=== PATIENT | male | born 1970 | race American Indian/Alaskan Native ===

== ENCOUNTER 2018-10-09 09:52 | Inpatient (IN) | payer MEDICARE ==
[2018-10-09 10:01] VITALS: BMI 30.2
[2018-10-09] MEDS ORDERED: MethylPREDNISolone 40 mg Vial IVP STA (10:13)
[2018-10-09] MEDS ORDERED: Albuterol 0.083% Inhal Sol (2.5 mg/3 mL) UD INH STA (10:13)
--- NOTE | 2018-10-09 10:13 | ED PDOC ---
Arrival/HPI - General Chief Complaint: Chest Pain Time Seen by Provider: 10/09/18 10:00 Historian: Patient - History of Present Illness Narrative History of Present Illness (Text): 10/09/18 10:13 A 48 year old male, whose past medical history includes sarcoidosis and 3 pacemakers, presents to the emergency department complaining of chest pain since 3 days ago. Patient reports experiencing associated mid chest congestion, mild productive cough, and a subjective fever. Patient denies any chills, shortness of breath, diarrhea, nausea, vomiting, urinary symptoms, back pain, neck pain, headache, dizziness, or any other complaints. PMD: Dr. Payton Time/Duration: Other (3 days) Symptom Onset: Gradual Symptom Course: Unchanged Activities at Onset: Light Context: Home Past Medical History - Provider Review Nursing Documentation Reviewed: Yes - Infectious Disease Hx of Infectious Diseases: None - Cardiac Hx Cardiac Disorders: Yes ([place] x3) Hx Angina: Yes Hx Atrial Fibrillation: Yes Hx Cardiac Arrhythmia: Yes Hx Circulatory Problems: No Hx Congestive Heart Failure: Yes Hx [place]: Yes Hx Heart Murmur: No Hx Heart Transplant: No Hx Hypertension: Yes Hx Internal Defibrillator: Yes Hx Mitral Valve Prolapse: No Hx Pacemaker: Yes Hx Peripheral Edema: Yes Hx Peripheral Vascular Disease: No Other/Comment: R sided pacemaker - Pulmonary Hx Asthma: No Hx Bronchitis: No Hx Chronic Obstructive Pulmonary Disease (COPD): No Hx Emphysema: No Hx Pneumonia: No Hx Respiratory Aspiration: No Hx Respiratory Tract Infection: No Hx Sleep Apnea: No Hx Tuberculosis: No Other/Comment: Sarcoidosis - Neurological Hx Neurological Disorder: Yes Hx Alzheimer's Disease: No HX Cerebrovascular Accident: Yes (L sided weakness) Hx Dementia: No Hx Dizziness: Yes Hx Meningitis: No Hx Migraine: No Hx Parkinson's Disease: No Hx Seizures: No Hx Transient Ischemic Attacks (TIA): No Other/Comment: Brain aneurysm x 2. x 1 repair - HEENT Hx HEENT Disorder: No Hx Blind: No Hx Cataracts: No Hx Deafness: No Hx Difficulty Chewing: No Hx Epistaxis: No Hx Glaucoma: No Hx Macular Degeneration: No - Renal Hx Renal Disorder: No Hx Dialysis: No Hx Kidney Stones: No Hx Neurogenic Bladder: No Hx Pyelonephritis: No Hx Renal Cancer: No Hx Renal Failure: No - Endocrine/Metabolic Hx Endocrine Disorders: No Hx Adrenal Cancer: No Hx Diabetes Insipidus: No Hx Diabetes Mellitus Type 1: No Hx Diabetes Mellitus Type 2: No Hx Hyperthyroidism: No Hx Hypothyroidism: No Hx Systemic Lupus Erythematosus: No - Hematological/Oncological Hx Blood Disorders: No Hx AIDS: No Hx Anemia: No Hx Cancer: No Hx Chemotherapy: No Hx Cirrhosis: No Hx Hemophilia: No Hx Hepatitis A: No Hx Hepatitis B: No Hx Hepatitis C: No Hx Metastasis: No Hx Shingles: No Hx Sickle Cell Disease: No Hx Unexplained Bleeding: No - Integumentary Hx Dermatological Disorder: No Hx Basal Cell Carcinoma: No Hx Eczema: No Hx Melanoma: No Hx Psoriasis: No Hx Squamous Cell Carcinoma: No - Musculoskeletal/Rheumatological Hx Musculoskeletal Disorders: Yes Hx Arthritis: No Hx Back Pain: Yes Hx Degenerative Joint Disease: No Hx Falls: Yes Hx Fractures: No Hx Gout: No Hx Herniated Disk: No Hx Myasthenia Gravis: No Hx Osteoarthritis: No Hx Osteomyelitis: No Hx Osteoporosis: No Hx Rhabdomyolysis: No Hx Spinal Stenosis: No Hx Unsteady Gait: No - Gastrointestinal Hx Gastrointestinal Disorders: Yes Hx Colostomy: No Hx Crohn's Disease: No Hx Diverticulitis: No Hx Gall Bladder Disease: No Hx Gastroesophageal Reflux: Yes Hx Gastrointestinal Ulcer: Yes Hx Ileostomy: No Hx Liver Failure: No Hx Pancreatitis: No HX Swallowing Problems: No - Genitourinary/Gynecological Hx Genitourinary Disorders: Yes Hx Hematuria: No Hx Incontinence: No Hx Prostate Problems: Yes Hx Sexually Transmitted Diseases: No Hx Urinary Tract Infection: No - Psychiatric Hx Psychophysiologic Disorder: Yes Hx Anxiety: Yes Hx Bipolar Disorder: Yes Hx Depression: Yes Hx Emotional Abuse: No Hx Hallucinations: No Hx Panic Disorder: No Hx Post Traumatic Stress Disorder: No Hx Psychosis: No Hx Physical Abuse: No Hx Schizophrenia: No Hx Sexual Abuse: No Hx Substance Use: Yes (medical marijuana) - Surgical History Hx Amputation: No Hx Appendectomy: No Hx Cardiac Catheterization: Yes Hx Cholecystectomy: No Hx Coronary Stent: Yes Hx Gastric Bypass Surgery: No Hx Hysterectomy: No Hx Joint Replacement: No Hx Kidney Transplant: No Hx Liver Transplant: No Hx Mastectomy: No Hx Musculoskeletal Surgery: No Hx Open Heart Surgery: No Hx Orthopedic Surgery: No Hx Splenectomy: No Hx Valve Replacement: No - Anesthesia Hx Anesthesia: Yes Hx Anesthesia Reactions: No Hx Malignant Hyperthermia: No - Suicidal Assessment Feels Threatened In Home Enviroment: No Family/Social History - Physician Review Nursing Documentation Reviewed: Yes Family/Social History: No Known Family HX Smoking Status: Never Smoked Hx Alcohol Use: Yes Hx Substance Use: Yes (medical marijuana) Substance used: heroin Allergies/Home Meds Allergies/Adverse Reactions: Allergies No Known Allergies Allergy (Verified 07/11/16 18:53) Home Medications: Home Meds Medication Instructions Recorded Confirmed Alprazolam [Xanax] 0.5 mg PO TID PRN 06/22/16 10/09/18 Atorvastatin Calcium 80 mg PO DAILY 06/22/16 10/09/18 OXcarbazepine [Trileptal] 300 mg PO DAILY 06/22/16 10/09/18 Topiramate 50 mg PO DAILY 06/22/16 10/09/18 Carvedilol [Coreg] 12.5 mg PO BID 07/09/16 10/09/18 Furosemide [Lasix] 40 mg PO DAILY 07/09/16 10/09/18 Apixaban [Eliquis] 1 tab PO BID 10/09/18 10/09/18 Fludrocortisone [Florinef] 1 tab PO DAILY 10/09/18 10/09/18 Levothyroxine [Synthroid] 1 tab PO DAILY 10/09/18 10/09/18 Lisinopril [Zestril] 1 tab PO DAILY 10/09/18 10/09/18 Midodrine [Proamatine] 1 tab PO DAILY 10/09/18 10/09/18 Spironolactone [Aldactone] 1 tab PO DAILY 10/09/18 10/09/18 oxyCODONE [oxyCODONE Immediate 1 tab PO TID PRN 10/09/18 10/09/18 Release Tab] traZODone [Desyrel] 1 tab PO HS 10/09/18 10/09/18 Review of Systems - Physician Review All systems were reviewed & negative as marked: Yes - Review of Systems Constitutional: Fevers (subjective fever). absent: Other (chills) Respiratory: Cough (mild productive cough). absent: SOB Cardiovascular: Chest Pain, Other (mid chest congestion) Gastrointestinal: absent: Diarrhea, Vomiting Musculoskeletal: absent: Back Pain, Neck Pain Neurological: absent: Headache, Dizziness Physical Exam - Physical Exam Narrative Physical Exam (Text): 10/09/18 10:17 Gen: VS reviewed, alert, well developed, well nourished, nontoxic, mild distress. ENT: normal pharynx. Eye: EOMI, PERRL. Neck: no JVD, supple, no adenopathy. CV: regular rate, regular rhythm, no rubs, no murmur, no gallops, S1, S2, pulses equal and strong. Pulm: Ronchi to bilateral full lung feldman. Abd: soft, nontender, no guarding, no rebound, no rigidity, normal bowel sounds. Ext: no edema. Skin: good color, no rash, no cyanosis. Psych: responds appropriately to questions, normal affect. Neuro: oriented x 3, CN2-12 intact grossly, motor intact, sensation intact. Vital Signs Reviewed: Yes Temperature: Afebrile Blood Pressure: Normal Pulse: Regular Respiratory Rate: Normal Medical Decision Making ED Course and Treatment: 10/09/18 10:20 Impression: A 48 year old male presents to the emergency department complaining of chest pain. Plan: -- VBG -- EKG -- Labs -- CBC -- COAGs -- Chest X-ray -- Albuterol -- Toradol -- Solu-medrol -- Reassess and disposition Prior Visits: Notes and results from previous visits were reviewed. Progress Notes: 10/09/18 13:00 on re-eval, patient noted to still have coarse breath sounds but more wheezing noted. patient was previously hesitant to have solumedrol due to concern for weight gain but this is unlikley in short burst dosing. will continue medication for bronchospasm, give ivf in light of relative hypotension, consider admit 10/09/18 14:52 patient with continued dyspnea and wheezing on exam, will admit for continued neb tx, systemic corticosteroids for persistent bronchospasm - RAD Interpretation Narrative RAD Interpretations (Text): 10/09/18 12:35 Procedure: Chest X-ray Dictator: Miguel Gaston MD Impression: No active disease. Lead Bi Developer: Radiologist - EKG Interpretation EKG Interpretation (Text): 10/09/18 12:40 1003: sinus rhythm at 76 bpm, 100% ventricular pacemaker Interpreted by ED Physician: Yes - Scribe Statement The provider has reviewed the documentation as recorded by the Arjun Negro All medical record entries made by the Scribkonrad were at my direction and personally dictated by me. I have reviewed the chart and agree that the record accurately reflects my personal performance of the history, physical exam, medical decision making, and the department course for this patient. I have also personally directed, reviewed, and agree with the discharge instructions and disposition. Disposition/Present on Arrival - Present on Arrival Any Indicators Present on Arrival: No History of DVT/PE: No History of Uncontrolled Diabetes: No Urinary Catheter: No History of Decub. Ulcer: No History Surgical Site Infection Following: None - Disposition Have Diagnosis and Disposition been Completed?: Yes Diagnosis: Bronchospasm Disposition: HOSPITALIZED Disposition Time: 14:55 Patient Plan: Admission Condition: STABLE Forms: Teikon (Kazakh)
[2018-10-09 11:09] LABS: VENOUS BLOOD GAS BASE EXCESS -0.2 mmol/L (0.0-2.0); VENOUS BLOOD GAS PO2 151 mm/Hg (30-55); VENOUS BLOOD PH 7.42 (7.32-7.43)
[2018-10-09 11:18] LABS: BASO # 0.02 K/mm3 (0.0-2.0); BASO % 0.4 % (0.0-3.0); EOS % 0.8 % (1.5-5.0); GRAN # 3.11 (1.4-6.5); GRAN % 62.2 % (50.0-68.0); HEMOGLOBIN 10.5 g/dL (14.0-18.0); LYMPH # 1.3 (1.2-3.4); MEAN CORPUSCULAR HEMOGLOBIN 25.4 pg (25.0-35.0); MEAN CORPUSCULAR HGB CONC 32.1 g/dl (31.0-37.0); MEAN PLATELET VOLUME 9.6 fl (7.0-11.0); MONO # 0.6 (0.1-0.6); MONO % 11.6 % (1.0-6.0); RBC 4.14 10^6/uL (3.5-6.1); RED CELL DISTRIBUTION WIDTH 17.1 % (11.5-14.5)
[2018-10-09 11:20] LABS: ALB/GLOB RATIO 0.9 (1.1-1.8); ALBUMIN 3.4 g/dL (3.0-4.8); ALT/SGPT 26 U/L (7-56); AST/SGOT 23 U/L (17-59); BLOOD UREA NITROGEN 9 mg/dL (7-21); CALCIUM 8.8 mg/dL (8.4-10.5); GFR NON-AFRICAN AMERICAN > 60
[2018-10-09 11:23] LABS: INR 1.96; PARTIAL THROMBOPLASTIN TIME 35.4 Seconds (25.1-36.5); PROTHROMBIN TIME 22.9 SECONDS (9.4-12.5)
[2018-10-09 11:31] LABS: TROPONIN I < 0.01 ng/mL
--- NOTE | 2018-10-09 12:31 | RAD ---
Date of service: 10/09/2018 HISTORY: cough, pneumonia, hx sarcoidosis COMPARISON: 07/11/2016 TECHNIQUE: Chest PA and lateral FINDINGS: LUNGS: No active pulmonary disease. PLEURA: No significant pleural effusion identified. No pneumothorax apparent. CARDIOVASCULAR: No aortic atherosclerotic calcification present. Mild cardiomegaly no pulmonary vascular congestion. OSSEOUS STRUCTURES: No significant abnormalities. VISUALIZED UPPER ABDOMEN: Normal. OTHER FINDINGS: Dual lead pacemaker IMPRESSION: No active disease.
[2018-10-09] MEDS ORDERED: Sodium Chloride 0.9% 500 ML IV STA (12:59)
[2018-10-09] MEDS: Albuterol-Ipratrop 3 mg / 0.5 (3 ml) UD IH SCH ×4 (13:14→18:40)
[2018-10-09] MEDS ORDERED: Potassium Chloride 20 mEq ER Tab PO ONE (15:06)
[2018-10-09 15:14] LABS: OPIATES, UR NEGATIVE (NEGATIVE); PHENCYCLIDINE, UR NEGATIVE (NEGATIVE)
[2018-10-09 15:43] LABS: BARBITURATES, UR NEGATIVE (NEGATIVE); BENZODIAZEPINES, UR POSITIVE (NEGATIVE)
[2018-10-09] MEDS ORDERED: Albuterol-Ipratrop 3 mg / 0.5 (3 ml) UD IH PRN (16:20)
[2018-10-09] MEDS: cefTRIAXone 1 gm 1 GM/100 ML BAG IVPB SCH (16:54)
[2018-10-09] MEDS: MethylPREDNISolone 40 mg Vial IVP SCH (16:57)
--- NOTE | 2018-10-09 18:17 | CP.PCM.HP ---
<Prateek Boss - Last Filed: 10/09/18 19:15> History of Present Illness - History of Present Illness History of Present Illness: Prateek Boss PGY1 History and Physical for Dr Avalos Pt is a 48yo male with a PMH of sacroidosis induced cardiomyopathy, 2 brain aneurisms, CHF, atrial fibrillation, gastric ulcer, and hypothyroidism who presents to the ED complaining of chest pain. Pt reports chest pain which is worse with exertion and made better with rest. Pt states this pain started about 2 days ago. He denies every having pain like this before. The pain radiates down his left arm and into his left jaw. Pt reports coughing up light green sputum. Pt admits to 4 episodes of diarrhea each day for the past 2 days as well as a small amount of blood in the stool. Pt reports some SOB. Denies sick contacts. A 12 point ROS was obtained and added to the HPI where appropriate. PMH: sacroidosis induced cardiomyopathy, 2 brain aneurisms, CHF, atrial fibrillation, gastric ulcer, and hypothyroidism PSH: AICD placement, brain surgery FH: Mother 65 triple cardiac bypass, HTN, DM. Father 69 prostate CA SH: denies tobacco, denies alcohol, admits marijuana, lives in [place] with his fiance Allergies: denies Home meds: called [facility] and verified medication list Cardio: Dr Pimentel Food Service Worker: sarcoidosis specialist: Dr Clark GI: Dr Montague Present on Admission - Present on Admission Any Indicators Present on Admission: No Past Patient History - Infectious Disease Hx of Infectious Diseases: None - Past Medical History & Family History Past Medical History?: Yes - Past Social History Smoking Status: Never Smoked - CARDIAC Hx Cardiac Disorders: Yes ([place] x3) Hx Angina: Yes Hx Atrial Fibrillation: Yes Hx Cardia Arrhythmia: Yes Hx Circulatory Problems: No Hx Congestive Heart Failure: Yes Hx Heart Attack: Yes Hx Heart Murmur: No Hx Heart Transplant: No Hx Hypertension: Yes Hx Internal Defibrillator: Yes Hx Mitral Valve Prolapse: No Hx Pacemaker: Yes Hx Peripheral Edema: Yes Hx Peripheral Vascular Disease: No Other/Comment: R sided pacemaker - PULMONARY Hx Asthma: No Hx Bronchitis: No Hx Chronic Obstructive Pulmonary Disease (COPD): No Hx Emphysema: No Hx Pneumonia: No Hx Respiratory Aspiration: No Hx Respiratory Tract Infection: No Hx Sleep Apnea: No Hx Tuberculosis: No Other/Comment: Sarcoidosis - NEUROLOGICAL Hx Neurological Disorder: Yes Hx Alzheimer's Disease: No HX Cerebrovascular Accident: Yes (L sided weakness) Hx Dementia: No Hx Dizziness: Yes Hx Meningitis: No Hx Migraine: No Hx Parkinson's Disease: No Hx Seizures: No Hx Transient Ischemic Attacks (TIA): No Other/Comment: Brain aneurysm x 2. x 1 repair - HEENT Hx HEENT Problems: No Hx Blind: No Hx Cataracts: No Hx Deafness: No Hx Difficulty Chewing: No Hx Epistaxis: No Hx Glaucoma: No Hx Macular Degeneration: No - RENAL Hx Chronic Kidney Disease: No Hx Dialysis: No Hx Kidney Stones: No Hx Neurogenic Bladder: No Hx Pyelonephritis: No Hx Renal (Kidney) Cancer: No Hx Renal Failure: No - ENDOCRINE/METABOLIC Hx Endocrine Disorders: No Hx Adrenal Cancer: No Hx Diabetes Insipidus: No Hx Diabetes Mellitus Type 1: No Hx Diabetes Mellitus Type 2: No Hx Hyperthyroidism: No Hx Hypothyroidism: No Hx Systemic Lupus Erythematosus: No - HEMATOLOGICAL/ONCOLOGICAL Hx Blood Disorders: No Hx AIDS: No Hx Anemia: No Hx Cancer: No Hx Chemotherapy: No Hx Cirrhosis: No Hx Hemophilia: No Hx Hepatitis A: No Hx Hepatitis B: No Hx Hepatitis C: No Hx Metastesis: No Hx Shingles: No Hx Sickle Cell Disease: No Hx Unexplained Bleeding: No - INTEGUMENTARY Hx Dermatological Problems: No Hx Basil Cell: No Hx Eczema: No Hx Melanoma: No Hx Psoriasis: No Hx Squamous Cell: No - MUSCULOSKELETAL/RHEUMATOLOGICAL Hx Musculoskeletal Disorders: Yes Hx Arthritis: No Hx Back Pain: Yes Hx Degenerative Joint Disease: No Hx Falls: Yes Hx Fractures: No Hx Gout: No Hx Herniated Disk: No Hx Myasthenia Gravis: No Hx Osteoarthritis: No Hx Osteomyelitis: No Hx Osteoporosis: No Hx Rhabdomyolysis: No Hx Spinal Stenosis: No Hx Unsteady Gait: No - GASTROINTESTINAL Hx Gastrointestinal Disorders: Yes Hx Colostomy: No Hx Crohn's Disease: No Hx Diverticulitis: No Hx Gall Bladder Disease: No Hx Gastroesophageal Reflux: Yes Hx Ileostomy: No Hx Liver Failure: No Hx Pancreatitis: No HX Swallowing Problems: No - GENITOURINARY/GYNECOLOGICAL Hx Genitourinary Disorders: Yes Hx Hematuria: No Hx Incontinence: No Hx Prostate Problems: Yes Hx Sexually Transmitted Disorders: No Hx Urinary Tract Infection: No - PSYCHIATRIC Hx Psychophysiologic Disorder: Yes Hx Anxiety: Yes Hx Bipolar Disorder: Yes Hx Depression: Yes Hx Emotional Abuse: No Hx Hallucinations: No Hx Panic Symptoms: No Hx Post Traumatic Stress Disorder: No Hx Psychosis: No Hx Physical Abuse: No Hx Schizophrenia: No Hx Sexual Abuse: No Hx Substance Use: Yes (medical marijuana) - SURGICAL HISTORY Hx Amputation: No Hx Appendectomy: No Hx Cardiac Catheterization: Yes Hx Cholecystectomy: No Hx Coronary Stent: Yes Hx Gastric Bypass Surgery: No Hx Hysterectomy: No Hx Joint Replacement: No Hx Kidney Transplant: No Hx Liver Transplant: No Hx Mastectomy: No Hx Musculoskeletal Surgery: No Hx Open Heart Surgery: No Hx Orthopedic Surgery: No Hx Splenectomy: No Hx Valve Replacement: No - ANESTHESIA Hx Anesthesia: Yes Hx Anesthesia Reactions: No Hx Malignant Hyperthermia: No Meds Allergies/Adverse Reactions: Allergies Allergy/AdvReac Type Severity Reaction Status Date / Time No Known Allergies Allergy Verified 07/11/16 18:53 Physical Exam - Head Exam Head Exam: ATRAUMATIC, NORMOCEPHALIC - Eye Exam Eye Exam: EOMI, PERRL - ENT Exam ENT Exam: Mucous Membranes Moist - Neck Exam Neck exam: Positive for: Normal Inspection - Respiratory Exam Respiratory Exam: Rhonchi. absent: Accessory Muscle Use, Respiratory Distress Additional comments: AICD scar on left side of chest - Cardiovascular Exam Cardiovascular Exam: +S1, +S2. absent: Diastolic murmur, Systolic Murmur - GI/Abdominal Exam GI & Abdominal Exam: Normal Bowel Sounds, Soft, Tenderness Additional comments: tenderness in the RUQ - Extremities Exam Extremities exam: Positive for: full ROM, normal inspection, pedal pulses present. Negative for: calf tenderness, pedal edema - Neurological Exam Neurological exam: Alert, Oriented x3 - Psychiatric Exam Psychiatric exam: Normal Affect, Normal Mood - Skin Skin Exam: Dry, Intact, Warm Results - Vital Signs Recent Vital Signs: Last Vital Signs Temp 98.1 F 10/09/18 10:12 Pulse 65 10/09/18 17:44 Resp 18 10/09/18 17:44 BP 126/94 H 10/09/18 17:44 Pulse Ox 98 10/09/18 17:44 - Labs Result Diagrams: 10/09/18 10:50 10/09/18 10:50 Labs: Laboratory Results - last 24 hr 10/09/18 10/09/18 10/09/18 10:50 10:50 10:50 WBC 5.0 RBC 4.14 Hgb 10.5 L Hct 32.7 L MCV 79.0 L MCH 25.4 MCHC 32.1 RDW 17.1 H Plt Count 195 MPV 9.6 Gran % 62.2 Lymph % (Auto) 25.0 [place] % (Auto) 11.6 H Eos % (Auto) 0.8 L Baso % (Auto) 0.4 Gran # 3.11 Lymph # (Auto) 1.3 [place] # (Auto) 0.6 Eos # (Auto) 0.0 Baso # (Auto) 0.02 PT 22.9 H INR 1.96 APTT 35.4 pO2 VBG pH VBG pCO2 VBG HCO3 VBG Total CO2 VBG O2 Sat (Calc) VBG Base Excess VBG Potassium Sodium 139 Chloride 107 Glucose Lactate FiO2 Potassium 3.3 L Carbon Dioxide 25 Anion Gap 10 BUN 9 Creatinine 0.9 Est GFR ( Amer) > 60 Est GFR (Non-Af Amer) > 60 Random Glucose 96 Calcium 8.8 Total Bilirubin 0.5 AST 23 ALT 26 Alkaline Phosphatase 121 Troponin I < 0.01 D Total Protein 7.0 Albumin 3.4 Globulin 3.6 Albumin/Globulin Ratio 0.9 L Venous Blood Potassium Urine Opiates Screen Urine Methadone Screen Ur Barbiturates Screen Ur Phencyclidine Scrn Ur Amphetamines Screen U Benzodiazepines Scrn U Oth Cocaine Metabols U Cannabinoids Screen 10/09/18 10/09/18 10:50 14:40 WBC RBC Hgb Hct MCV MCH MCHC RDW Plt Count MPV Gran % Lymph % (Auto) [place] % (Auto) Eos % (Auto) Baso % (Auto) Gran # Lymph # (Auto) [place] # (Auto) Eos # (Auto) Baso # (Auto) PT INR APTT pO2 151 H VBG pH 7.42 VBG pCO2 37.0 L VBG HCO3 24.0 VBG Total CO2 25.1 VBG O2 Sat (Calc) 99.1 H VBG Base Excess -0.2 L VBG Potassium 3.1 L Sodium 137.0 Chloride 107.0 Glucose 95 Lactate 0.7 FiO2 21.0 Potassium Carbon Dioxide Anion Gap BUN Creatinine Est GFR ( Amer) Est GFR (Non-Af Amer) Random Glucose Calcium Total Bilirubin AST ALT Alkaline Phosphatase Troponin I Total Protein Albumin Globulin Albumin/Globulin Ratio Venous Blood Potassium 3.1 L Urine Opiates Screen Negative Urine Methadone Screen Negative Ur Barbiturates Screen Negative Ur Phencyclidine Scrn Negative Ur Amphetamines Screen Negative U Benzodiazepines Scrn Positive H U Oth Cocaine Metabols Negative U Cannabinoids Screen Positive H Assessment & Plan - Assessment and Plan (Free Text) Assessment: Pt is a 48yo male with a PMH of sacroidosis induced cardiomyopathy, 2 brain aneurisms, CHF, atrial fibrillation, gastric ulcer, and hypothyroidism who presents to the ED complaining of chest pain. Plan: ACS rule out - tropnin - EKG - TSH 0.04 Possible Bronchitis vs URI - strep pneumo - blood cultures - sputum cultures - mycoplasma - duonebs - azithromycin Intractable Diarrhea - legionella - fecal leukocytes - stool cultures - c diff - ova and parasites Seizures - trileptal - topamax Sacroidosis - solumedrol 20 CHF - coreg - lasix - lisinopril Atrial fibrillation - eliquis Hypothyroidism - synthroid - TSH 0.04 Ppx - SCDs Pt seen, examined, assessment and plan discussed with Dr Bailey Boss PGY1, Internal Medicine Resident - Date & Time Date: 10/09/18 Time: 18:20 <Buck Avalos - Last Filed: 10/12/18 23:35> Results - Vital Signs Recent Vital Signs: Last Vital Signs Temp 98.0 F 10/11/18 17:47 Pulse 60 10/12/18 09:56 Resp 20 10/11/18 17:47 BP 127/91 H 10/12/18 09:57 Pulse Ox 96 10/11/18 08:22 - Labs Result Diagrams: 10/12/18 06:00 10/12/18 06:00 Labs: Laboratory Results - last 24 hr 10/10/18 10/12/18 10/12/18 06:00 06:00 06:00 WBC 6.9 D RBC 4.88 Hgb 12.3 L Hct 38.2 L MCV 78.3 L MCH 25.2 MCHC 32.2 RDW 17.0 H Plt Count 224 MPV 9.8 Gran % 77.0 H Lymph % (Auto) 14.3 L [place] % (Auto) 8.7 H Eos % (Auto) 0.0 L Baso % (Auto) 0.0 Gran # 5.28 Lymph # (Auto) 1.0 L [place] # (Auto) 0.6 Eos # (Auto) 0.0 Baso # (Auto) 0.00 Sodium 142 Potassium 3.9 Chloride 107 Carbon Dioxide 26 Anion Gap 12 BUN 19 Creatinine 0.9 Est GFR ( Amer) > 60 Est GFR (Non-Af Amer) > 60 Random Glucose 112 H Calcium 9.3 Total Bilirubin 0.5 AST 25 ALT 25 Alkaline Phosphatase 127 H D Total Protein 7.9 Albumin 3.9 Globulin 4.1 Albumin/Globulin Ratio 0.9 L Mycoplasma pneumon IgG 2.10 H Attending/Attestation - Attestation I have personally seen and examined this patient.: Yes I have fully participated in the care of the patient.: Yes I have reviewed all pertinent clinical information: Yes Notes (Text): 48 y/o M with PMH of sarcoidosis, severe cardiomyopathy s/p AICD, A. fib on Eliquis, admitted for chest pain and bronchitis Bronchitis CP r/o ACS Sarcoidosis Chronic diarrhea Anxiety Seizure A. fib Hypothyroidism
[2018-10-09] MEDS: oxyCODONE 5 mg Immediate Release Tab PO PRN (20:01)
--- NOTE | 2018-10-09 20:40 | CARD ---
APPROVED REPORT Date of service: 10/09/2018 EKG Measurement Heart [id number] <Conclusion> Electronic ventricular pacemaker
[2018-10-09] MEDS ORDERED: Pneumococcal 23-Valent Vaccine IM ONE (22:19)
[2018-10-09] MEDS ORDERED: Influenza Vaccine 60 mcg/0.5 mL SYR (4YR UP) IM ONE (22:19)
[2018-10-10] MEDS: Albuterol-Ipratrop 3 mg / 0.5 (3 ml) UD IH SCH ×2 (01:26→07:50)
[2018-10-10 06:28] LABS: GRAN # 2.28 (1.4-6.5); GRAN % 67.5 % (50.0-68.0); HEMOGLOBIN 11.2 g/dL (14.0-18.0); LYMPH # 0.6 (1.2-3.4); LYMPH % 18.3 % (22.0-35.0); MEAN CELL VOLUME 78.6 fl (80.0-105.0); MEAN CORPUSCULAR HEMOGLOBIN 24.7 pg (25.0-35.0); MEAN CORPUSCULAR HGB CONC 31.5 g/dl (31.0-37.0); MONO # 0.5 (0.1-0.6); MONO % 14.2 % (1.0-6.0); RBC 4.53 10^6/uL (3.5-6.1); RED CELL DISTRIBUTION WIDTH 16.7 % (11.5-14.5); WHITE BLOOD COUNT 3.4 10^3/uL (4.5-11.0)
[2018-10-10 06:36] LABS: INR 1.56; PARTIAL THROMBOPLASTIN TIME 31.9 Seconds (25.1-36.5); PROTHROMBIN TIME 18.1 SECONDS (9.4-12.5)
[2018-10-10 06:56] LABS: ALB/GLOB RATIO 0.9 (1.1-1.8); ALBUMIN 3.6 g/dL (3.0-4.8); ALT/SGPT 26 U/L (7-56); AST/SGOT 21 U/L (17-59); BLOOD UREA NITROGEN 14 mg/dL (7-21); CALCIUM 9.4 mg/dL (8.4-10.5); GFR NON-AFRICAN AMERICAN > 60
[2018-10-10] MEDS: Levothyroxine 50 MCG TAB PO SCH (10:08)
[2018-10-10] MEDS: cefTRIAXone 1 gm 1 GM/100 ML BAG IVPB SCH (10:08)
[2018-10-10] MEDS: Azithromycin 500MG/NS 250ml 500 MG/250 ML BAG IVPB SCH (10:09)
[2018-10-10] MEDS: oxyCODONE 5 mg Immediate Release Tab PO PRN ×3 (10:17→23:02)
[2018-10-10] MEDS: MethylPREDNISolone 40 mg Vial IVP SCH (10:56)
--- NOTE | 2018-10-10 14:01 | CP.PCM.PN ---
<Prateek Boss - Last Filed: 10/10/18 14:40> Subjective - Date & Time of Evaluation Date of Evaluation: 10/10/18 Time of Evaluation: 08:00 - Subjective Subjective: Pt seen and examined this morning. Pt denies crushing chest pain or SOB. Objective - Vital Signs/Intake and Output Vital Signs (last 24 hours): Temp Pulse Resp BP Pulse Ox 97.4 F L 123 H 18 123/85 96 10/10/18 08:08 10/10/18 10:07 10/10/18 08:08 10/10/18 10:05 10/10/18 08:08 Intake and Output: 10/10/18 10/10/18 06:59 18:59 Intake Total 360 Balance 360 - Medications Medications: Current Medications Albuterol/Ipratropium (Duoneb 3 Mg/0.5 Mg (3 Ml) Ud) 3 ml IH Q2 PRN PRN Reason: Shortness of Breath Alprazolam (Xanax) 0.5 mg PO TID PRN; Protocol PRN Reason: Anxiety Last Admin: 10/10/18 11:20 Dose: 0.5 mg Apixaban (Eliquis) 5 mg PO BID [facility]; Protocol Last Admin: 10/10/18 10:09 Dose: 5 mg Atorvastatin Calcium (Lipitor) 80 mg PO HS [facility] Last Admin: 10/09/18 22:17 Dose: 80 mg Carvedilol (Coreg) 3.125 mg PO BID [facility] Last Admin: 10/10/18 10:07 Dose: 3.125 mg Furosemide (Lasix) 40 mg PO DAILY [facility] Last Admin: 10/10/18 10:05 Dose: 40 mg Ceftriaxone Sodium (Rocephin 1 Gram Ivpb) 1 gm in 100 mls @ 100 mls/hr IVPB DAILY [facility]; Protocol Last Admin: 10/10/18 10:08 Dose: 100 mls/hr Azithromycin (Zithromax 500mg In Ns) 500 mg in 250 mls @ 167 mls/hr IVPB DAILY [facility]; Protocol Last Admin: 10/10/18 10:09 Dose: 167 mls/hr Levothyroxine Sodium (Synthroid) 50 mcg PO DAILY [facility] Last Admin: 10/10/18 10:08 Dose: 50 mcg Lisinopril (Zestril) 20 mg PO DAILY [facility] Last Admin: 10/10/18 10:07 Dose: 20 mg Methylprednisolone (Solu-Medrol) 20 mg IVP DAILY [facility] Last Admin: 10/10/18 10:56 Dose: 20 mg Oxcarbazepine (Trileptal) 300 mg PO DAILY [facility]; Protocol Last Admin: 10/10/18 10:08 Dose: 300 mg Oxycodone HCl (Oxycodone Immediate Release Tab) 5 mg PO TID PRN PRN Reason: Pain, moderate (4-7) Last Admin: 10/10/18 10:17 Dose: 5 mg Spironolactone (Aldactone) 25 mg PO DAILY [facility] Last Admin: 10/10/18 10:07 Dose: 25 mg Topiramate (Topamax) 50 mg PO DAILY [facility]; Protocol Last Admin: 10/10/18 10:06 Dose: 50 mg - Labs Labs: 10/10/18 06:00 10/10/18 06:00 PT 18.1 SECONDS (9.4-12.5) H 10/10/18 06:00 INR 1.56 10/10/18 06:00 APTT 31.9 Seconds (25.1-36.5) 10/10/18 06:00 - Constitutional Appears: No Acute Distress - Head Exam Head Exam: ATRAUMATIC, NORMOCEPHALIC - Eye Exam Eye Exam: EOMI - ENT Exam ENT Exam: Mucous Membranes Moist - Respiratory Exam Respiratory Exam: Clear to Ausculation Bilateral, NORMAL BREATHING PATTERN. absent: Accessory Muscle Use, Respiratory Distress - Cardiovascular Exam Cardiovascular Exam: +S1, +S2. absent: Diastolic murmur, Murmur - GI/Abdominal Exam GI & Abdominal Exam: Soft, Normal Bowel Sounds - Extremities Exam Extremities Exam: Full ROM. absent: Calf Tenderness, Pedal Edema - Neurological Exam Neurological Exam: Alert, Awake, Oriented x3 - Psychiatric Exam Psychiatric exam: Normal Affect, Normal Mood - Skin Skin Exam: Dry, Normal Color, Warm Assessment and Plan - Assessment and Plan (Free Text) Assessment: Pt is a 48yo male with a PMH of sacroidosis induced cardiomyopathy, 2 brain an eurisms, CHF, atrial fibrillation, gastric ulcer, and hypothyroidism who presents to the ED complaining of chest pain. Plan: Bronchitis vs URI - possible bronchitis, want to determine/ rule out possible infectious causes - strep pneumo pending - blood cultures, sputum cultures pending - mycoplasma pending - duonebs Q2 PRN - discontinue rocephin - azithromycin Sacroidosis - pt states his sarcoidosis specialist does not want him to take steroids for his sarcodosis flares - we are holding methotrexate at this time ACS rule out - tropnin negative x2 - EKG negative STEMI or signs of ischemia Right upper quadrant US - RUQ US, follow up Chronic Diarrhea - pt states he has been having chronic diarrhea for a month, pt states he r eceived a colonoscopy in 2018 and states no pathology was noted. states he was informed to change his diet. - legionella, follow up - fecal leukocytes, stool cultures pending - ova and parasites, follow up - c diff NEGATIVE Anxiety - continue home xanax 0.5 TID Seizures - continue home trileptal - continue home topamax CHF - coreg 3.125 PO BID - lasix 40mg PO daily - lisinopril Atrial fibrillation - eliquis 5mg BID - continue to monitor Hypothyroidism - synthroid - TSH 0.04 Ppx - SCDs Pt seen, examined, assessment and plan discussed with Dr Bailey Boss PGY1, Internal Medicine Resident <Buck Avalos - Last Filed: 10/12/18 23:33> Objective - Vital Signs/Intake and Output Vital Signs (last 24 hours): Temp Pulse Resp BP Pulse Ox 98.0 F 60 20 127/91 H 96 10/11/18 17:47 10/12/18 09:56 10/11/18 17:47 10/12/18 09:57 10/11/18 08:22 - Labs Labs: 10/12/18 06:00 10/12/18 06:00 PT 18.1 SECONDS (9.4-12.5) H 10/10/18 06:00 INR 1.56 10/10/18 06:00 APTT 31.9 Seconds (25.1-36.5) 10/10/18 06:00 Attending/Attestation - Attestation I have personally seen and examined this patient.: Yes I have fully participated in the care of the patient.: Yes I have reviewed all pertinent clinical information, including history, physical exam and plan: Yes Notes (Text): 48 y/o M with PMH of sarcoidosis, severe cardiomyopathy s/p AICD, A. fib on Eliquis, admitted for chest pain and bronchitis Bronchitis CP r/o ACS Sarcoidosis Chronic diarrhea Anxiety Seizure A. fib Hypothyroidism
--- NOTE | 2018-10-10 15:17 | US ---
Date of service: 10/10/2018 HISTORY: RUQ, rule out gallstones COMPARISON: None. TECHNIQUE: Sonographic evaluation of the abdomen. FINDINGS: LIVER: Measures 12.7 cm. Patent portal vein. Portal venous flow: Hepatopetal. Unremarkable echogenicity of the liver parenchyma. No mass. No intrahepatic bile duct dilatation. GALLBLADDER: Unremarkable. No gallstones. COMMON BILE DUCT: Measures 4.0 mm. No stones. No dilatation. PANCREAS: Unremarkable as visualized. No mass. No ductal dilatation. RIGHT KIDNEY: Measures 6.5 x 10.7cm. Normal echogenicity. No calculus, mass, or hydronephrosis. LEFT KIDNEY: Measures 6.5 x 10.8cm. Normal echogenicity. No calculus, mass, or hydronephrosis. SPLEEN: Normal in size and contour. No mass. AORTA: No aneurysmal dilatation. IVC: Unremarkable. OTHER FINDINGS: None. IMPRESSION: Unremarkable abdominal sonogram.
[2018-10-10 17:18] VITALS: RESP 20
[2018-10-11 07:33] LABS: ALB/GLOB RATIO 0.9 (1.1-1.8); ALBUMIN 3.4 g/dL (3.0-4.8); ALT/SGPT 20 U/L (7-56); AST/SGOT 20 U/L (17-59); BLOOD UREA NITROGEN 22 mg/dL (7-21); CALCIUM 8.8 mg/dL (8.4-10.5); GFR NON-AFRICAN AMERICAN > 60
[2018-10-11 08:14] LABS: BASO # 0.01 K/mm3 (0.0-2.0); BASO % 0.2 % (0.0-3.0); GRAN # 3.86 (1.4-6.5); HEMOGLOBIN 10.8 g/dL (14.0-18.0); LYMPH # 1.3 (1.2-3.4); LYMPH % 22.4 % (22.0-35.0); MEAN CELL VOLUME 77.9 fl (80.0-105.0); MEAN CORPUSCULAR HEMOGLOBIN 24.9 pg (25.0-35.0); MEAN PLATELET VOLUME 9.7 fl (7.0-11.0); MONO # 0.5 (0.1-0.6); MONO % 8.4 % (1.0-6.0); RBC 4.34 10^6/uL (3.5-6.1); RED CELL DISTRIBUTION WIDTH 16.8 % (11.5-14.5); WHITE BLOOD COUNT 5.6 10^3/uL (4.5-11.0)
[2018-10-11 08:23] VITALS: O2SAT 96
[2018-10-11] MEDS: Azithromycin 500MG/NS 250ml 500 MG/250 ML BAG IVPB SCH (09:33)
[2018-10-11] MEDS: MethylPREDNISolone 40 mg Vial IVP SCH ×2 (09:34→21:12)
[2018-10-11] MEDS: Levothyroxine 50 MCG TAB PO SCH (09:35)
[2018-10-11] MEDS: oxyCODONE 5 mg Immediate Release Tab PO PRN ×2 (09:45→17:10)
--- NOTE | 2018-10-11 14:08 | CP.PCM.CON ---
History of Present Illness - History of Present Illness History of Present Illness: PULMONARY CONSULT REASON FOR CONSULT: SOB HPI: Patient is 48yo male, with PMHx sacroidosis dx 2004, (lung biopsy), cardiomyopathy, 2 brain aneurysms, CHF, atrial fibrillation on A/C, gastric ulcer, and hypothyroidism who presents to the ED complaining of chest pain, and chest congestion. Pt initially admitted to telemetry for chest pain, currently complaining of mild SOB and "chest congestion" x 4-5 days Pt notes cough and sputum production of yellow sputum for 4-5 days, without fever, chills, HERNANDEZ, dizziness. No other constitutional symptoms. Pt reports pulmonary sarcoidosis was diagnosed in 2004, lung biopsy, and he has been on and off steroids since then, but recently his pulmnologist, Dr Clark at [facility] has treated his Sarcoid flare ups with MTX Pt reports 100lbs weight gain on PO steroids in the past, and is averse to it. CXR on admission clear Pmhx sacroidosis dx 2004, (lung biopsy), cardiomyopathy, 2 brain aneurysms, CHF, atrial fibrillation on A/C, gastric ulcer, and hypothyroidism PSHx Lung biopsy, AICD Meds as per EMR FHx NC Social denies etoh, cigarette smoking, +marijuana use Allergies NKDA Review of Systems - Review of Systems Review of Systems: as per HPI Past Patient History - Infectious Disease Hx of Infectious Diseases: None - Past Medical History & Family History Past Medical History?: Yes - Past Social History Smoking Status: Never Smoked - CARDIAC Hx Cardiac Disorders: Yes ([place] x2, cp, afib) Hx Angina: Yes Hx Cardia Arrhythmia: Yes Hx Circulatory Problems: No Hx Congestive Heart Failure: Yes Hx Heart Murmur: No Hx Heart Transplant: No Hx Hypertension: Yes Hx Internal Defibrillator: Yes Hx Mitral Valve Prolapse: No Hx Pacemaker: Yes (aicd placement 1999, replaced 2006 and 2013) Hx Peripheral Edema: Yes (+1 ble) Hx Peripheral Vascular Disease: No Other/Comment: R sided pacemaker - PULMONARY Hx Respiratory Disorders: Yes Hx Asthma: No Hx Bronchitis: No Hx Chronic Obstructive Pulmonary Disease (COPD): No Hx Emphysema: No Hx Pneumonia: No Hx Respiratory Aspiration: No Hx Respiratory Tract Infection: No Hx Sleep Apnea: No Hx Tuberculosis: No Other/Comment: Sarcoidosis - NEUROLOGICAL Hx Neurological Disorder: Yes (syncope) Hx Alzheimer's Disease: No HX Cerebrovascular Accident: Yes (L sided weakness) Hx Dementia: No Hx Dizziness: Yes Hx Meningitis: No Hx Migraine: No Hx Parkinson's Disease: No Hx Seizures: No Hx Transient Ischemic Attacks (TIA): No Other/Comment: Brain aneurysm x 2. x 1 repair - HEENT Hx HEENT Problems: No Hx Blind: No Hx Cataracts: No Hx Deafness: No Hx Difficulty Chewing: No Hx Epistaxis: No Hx Glaucoma: No Hx Macular Degeneration: No - RENAL Hx Chronic Kidney Disease: No Hx Dialysis: No Hx Kidney Stones: No Hx Neurogenic Bladder: No Hx Pyelonephritis: No Hx Renal (Kidney) Cancer: No Hx Renal Failure: No - ENDOCRINE/METABOLIC Hx Endocrine Disorders: No Hx Adrenal Cancer: No Hx Diabetes Insipidus: No Hx Diabetes Mellitus Type 1: No Hx Diabetes Mellitus Type 2: No Hx Hyperthyroidism: No Hx Hypothyroidism: No Hx Systemic Lupus Erythematosus: No - HEMATOLOGICAL/ONCOLOGICAL Hx Blood Disorders: No Hx AIDS: No Hx Anemia: No Hx Cancer: No Hx Chemotherapy: No Hx Cirrhosis: No Hx Hemophilia: No Hx Hepatitis A: No Hx Hepatitis B: No Hx Hepatitis C: No Hx Metastesis: No Hx Shingles: No Hx Sickle Cell Disease: No Hx Unexplained Bleeding: No - INTEGUMENTARY Hx Dermatological Problems: Yes Hx Basil Cell: No Hx Eczema: No Hx Melanoma: No Hx Psoriasis: No Hx Squamous Cell: No Other/Comment: scar lfa from infection post pacemaker, chest scar from pacemaker, +1 edema ble and dry skin - MUSCULOSKELETAL/RHEUMATOLOGICAL Hx Falls: No - GASTROINTESTINAL Hx Gastrointestinal Disorders: Yes Hx Colostomy: No Hx Crohn's Disease: No Hx Diverticulitis: No Hx Gall Bladder Disease: No Hx Gastroesophageal Reflux: Yes Hx Ileostomy: No Hx Liver Failure: No Hx Pancreatitis: No HX Swallowing Problems: No Hx Ulcer: Yes - GENITOURINARY/GYNECOLOGICAL Hx Genitourinary Disorders: Yes Hx Hematuria: No Hx Incontinence: No Hx Prostate Problems: Yes (enlarged "ok now" pt stated) Hx Sexually Transmitted Disorders: No Hx Urinary Tract Infection: No - PSYCHIATRIC Hx Substance Use: Yes (marijuana) - SURGICAL HISTORY Hx Surgeries: Yes Hx Amputation: No Hx Appendectomy: No Hx Cardiac Catheterization: Yes Hx Cholecystectomy: No Hx Coronary Stent: Yes Hx Gastric Bypass Surgery: No Hx Hysterectomy: No Hx Joint Replacement: No Hx Kidney Transplant: No Hx Liver Transplant: No Hx Mastectomy: No Hx Musculoskeletal Surgery: No Hx Open Heart Surgery: No Hx Orthopedic Surgery: No Hx Splenectomy: No Hx Valve Replacement: No Other/Comment: cerebral aneurysm clips/aicd/ppm - ANESTHESIA Hx Anesthesia: Yes Hx Anesthesia Reactions: No Hx Malignant Hyperthermia: No Meds Allergies/Adverse Reactions: Allergies Allergy/AdvReac Type Severity Reaction Status Date / Time No Known Allergies Allergy Verified 07/11/16 18:53 - Medications Medications: Current Medications Albuterol/Ipratropium (Duoneb 3 Mg/0.5 Mg (3 Ml) Ud) 3 ml IH Q2 PRN PRN Reason: Shortness of Breath Alprazolam (Xanax) 0.5 mg PO TID PRN; Protocol PRN Reason: Anxiety Last Admin: 10/11/18 09:45 Dose: 0.5 mg Apixaban (Eliquis) 5 mg PO BID [facility]; Protocol Last Admin: 10/11/18 09:35 Dose: 5 mg Atorvastatin Calcium (Lipitor) 80 mg PO HS [facility] Last Admin: 10/10/18 22:55 Dose: 80 mg Azithromycin (Zithromax) 500 mg PO DAILY [facility] Carvedilol (Coreg) 3.125 mg PO BID [facility] Last Admin: 10/11/18 09:36 Dose: 3.125 mg Furosemide (Lasix) 40 mg PO DAILY [facility] Last Admin: 10/11/18 09:36 Dose: 40 mg Ketorolac Tromethamine (Toradol) 15 mg IVP ONCE ONE Stop: 10/11/18 13:54 Levothyroxine Sodium (Synthroid) 50 mcg PO DAILY [facility] Last Admin: 10/11/18 09:35 Dose: 50 mcg Lisinopril (Zestril) 20 mg PO DAILY [facility] Last Admin: 10/11/18 09:35 Dose: 20 mg Methylprednisolone (Solu-Medrol) 20 mg IVP DAILY [facility] Last Admin: 10/11/18 09:34 Dose: 20 mg Oxcarbazepine (Trileptal) 300 mg PO DAILY [facility]; Protocol Last Admin: 10/11/18 09:35 Dose: 300 mg Oxycodone HCl (Oxycodone Immediate Release Tab) 5 mg PO TID PRN PRN Reason: Pain, moderate (4-7) Last Admin: 10/11/18 09:45 Dose: 5 mg Spironolactone (Aldactone) 25 mg PO DAILY [facility] Last Admin: 10/11/18 09:35 Dose: 25 mg Topiramate (Topamax) 50 mg PO DAILY [facility]; Protocol Last Admin: 10/11/18 09:35 Dose: 50 mg Trazodone HCl (Desyrel) 50 mg PO HS [facility] Last Admin: 10/11/18 02:04 Dose: 50 mg Physical Exam - Constitutional Appears: Non-toxic, No Acute Distress - Head Exam Head Exam: NORMAL INSPECTION - Eye Exam Eye Exam: Normal appearance - ENT Exam ENT Exam: Mucous Membranes Moist - Neck Exam Neck exam: Positive for: Full Rom - Respiratory Exam Respiratory Exam: Rhonchi, NORMAL BREATHING PATTERN - Cardiovascular Exam Cardiovascular Exam: REGULAR RHYTHM, +S1, +S2 - GI/Abdominal Exam GI & Abdominal Exam: Normal Bowel Sounds, Soft - Extremities Exam Extremities exam: Positive for: normal inspection - Neurological Exam Neurological exam: Alert, Oriented x3 - Psychiatric Exam Psychiatric exam: Normal Affect - Skin Skin Exam: Normal Color, Warm Results - Vital Signs Recent Vital Signs: Last Vital Signs Temp 97.4 F L 10/11/18 08:22 Pulse 62 10/11/18 09:36 Resp 20 10/11/18 08:22 BP 114/77 10/11/18 09:36 Pulse Ox 96 10/11/18 08:22 - Labs Result Diagrams: 10/11/18 07:45 10/11/18 06:30 Labs: Laboratory Results - last 24 hr 10/10/18 10/11/18 10/11/18 07:00 06:30 07:45 WBC 5.6 D RBC 4.34 Hgb 10.8 L Hct 33.8 L MCV 77.9 L MCH 24.9 L MCHC 32.0 RDW 16.8 H Plt Count 203 MPV 9.7 Gran % 69.0 H Lymph % (Auto) 22.4 [place] % (Auto) 8.4 H Eos % (Auto) 0.0 L Baso % (Auto) 0.2 Gran # 3.86 Lymph # (Auto) 1.3 [place] # (Auto) 0.5 Eos # (Auto) 0.0 Baso # (Auto) 0.01 Sodium 140 Potassium 3.9 Chloride 110 H Carbon Dioxide 22 Anion Gap 13 BUN 22 H Creatinine 1.0 Est GFR ( Amer) > 60 Est GFR (Non-Af Amer) > 60 Random Glucose 97 Calcium 8.8 Total Bilirubin 0.3 AST 20 ALT 20 Alkaline Phosphatase 102 Total Protein 7.2 Albumin 3.4 Globulin 3.7 Albumin/Globulin Ratio 0.9 L Free T4 Stool Leukocytes, Qual Negative 10/11/18 08:25 WBC RBC Hgb Hct MCV MCH MCHC RDW Plt Count MPV Gran % Lymph % (Auto) [place] % (Auto) Eos % (Auto) Baso % (Auto) Gran # Lymph # (Auto) [place] # (Auto) Eos # (Auto) Baso # (Auto) Sodium Potassium Chloride Carbon Dioxide Anion Gap BUN Creatinine Est GFR ( Amer) Est GFR (Non-Af Amer) Random Glucose Calcium Total Bilirubin AST ALT Alkaline Phosphatase Total Protein Albumin Globulin Albumin/Globulin Ratio Free T4 1.23 Stool Leukocytes, Qual - Imaging and Cardiology Chest x-ray Status: Image reviewed by me, Report reviewed by me Assessment & Plan - Assessment and Plan (Free Text) Assessment: 48yo male with PMhx of sarcoidosis with mild SOB SOB Sarcoidosis Hx of CHF Hx of Afib on A/C - currently afebrile, HD stable, comfortable in NAD, on room air sat 97%, lungs with minimal rhonchi, no wheezing - CXR clear Recommend: - supp o2 only as needed - duonebs PRN - Pulmicort 0.5mg neb BID - Rocephin, Azithro - panculture, sputum culture, urine legionella strep; check FLU - would hold off steroids for now - will attempt to reach patients tone cabinet assembler Dr Clark at [facility] for further background information - cont with Eliquis - GI ppx - DVT ppx - Pulmonary will continue to follow
--- NOTE | 2018-10-11 14:59 | CP.PCM.PN ---
<Prateek Boss - Last Filed: 10/11/18 16:05> Subjective - Date & Time of Evaluation Date of Evaluation: 10/11/18 Time of Evaluation: 07:00 - Subjective Subjective: Pt seen and examined this morning at bedside. Pt states he feels unstable when walking and that he almost feel when going to the bathroom. Pt states he was supposed to receive physical therapy but something fell through with payment and he was never able to receive physical therapy evaluation or treatment. Objective - Vital Signs/Intake and Output Vital Signs (last 24 hours): Temp Pulse Resp BP Pulse Ox 97.4 F L 62 20 114/77 96 10/11/18 08:22 10/11/18 09:36 10/11/18 08:22 10/11/18 09:36 10/11/18 08:22 Intake and Output: 10/11/18 10/11/18 06:59 18:59 Intake Total 240 Balance 240 - Medications Medications: Current Medications Albuterol/Ipratropium (Duoneb 3 Mg/0.5 Mg (3 Ml) Ud) 3 ml IH Q2 PRN PRN Reason: Shortness of Breath Alprazolam (Xanax) 0.5 mg PO TID PRN; Protocol PRN Reason: Anxiety Last Admin: 10/11/18 09:45 Dose: 0.5 mg Apixaban (Eliquis) 5 mg PO BID [facility]; Protocol Last Admin: 10/11/18 09:35 Dose: 5 mg Atorvastatin Calcium (Lipitor) 80 mg PO HS [facility] Last Admin: 10/10/18 22:55 Dose: 80 mg Azithromycin (Zithromax) 500 mg PO DAILY [facility] Carvedilol (Coreg) 3.125 mg PO BID [facility] Last Admin: 10/11/18 09:36 Dose: 3.125 mg Furosemide (Lasix) 40 mg PO DAILY [facility] Last Admin: 10/11/18 09:36 Dose: 40 mg Levothyroxine Sodium (Synthroid) 50 mcg PO DAILY [facility] Last Admin: 10/11/18 09:35 Dose: 50 mcg Lisinopril (Zestril) 20 mg PO DAILY [facility] Last Admin: 10/11/18 09:35 Dose: 20 mg Methylprednisolone (Solu-Medrol) 20 mg IVP DAILY [facility] Last Admin: 10/11/18 09:34 Dose: 20 mg Oxcarbazepine (Trileptal) 300 mg PO DAILY [facility]; Protocol Last Admin: 10/11/18 09:35 Dose: 300 mg Oxycodone HCl (Oxycodone Immediate Release Tab) 5 mg PO TID PRN PRN Reason: Pain, moderate (4-7) Last Admin: 10/11/18 09:45 Dose: 5 mg Spironolactone (Aldactone) 25 mg PO DAILY [facility] Last Admin: 10/11/18 09:35 Dose: 25 mg Topiramate (Topamax) 50 mg PO DAILY [facility]; Protocol Last Admin: 10/11/18 09:35 Dose: 50 mg Trazodone HCl (Desyrel) 50 mg PO HS [facility] Last Admin: 10/11/18 02:04 Dose: 50 mg - Labs Labs: 10/11/18 07:45 10/11/18 06:30 PT 18.1 SECONDS (9.4-12.5) H 10/10/18 06:00 INR 1.56 10/10/18 06:00 APTT 31.9 Seconds (25.1-36.5) 10/10/18 06:00 - Constitutional Appears: No Acute Distress - Head Exam Head Exam: ATRAUMATIC, NORMOCEPHALIC - Eye Exam Eye Exam: EOMI - ENT Exam ENT Exam: Mucous Membranes Moist - Neck Exam Neck Exam: Full ROM - Respiratory Exam Respiratory Exam: Rhonchi, NORMAL BREATHING PATTERN. absent: Accessory Muscle Use, Respiratory Distress - Cardiovascular Exam Cardiovascular Exam: RRR, +S1, +S2. absent: Diastolic murmur, Murmur - GI/Abdominal Exam GI & Abdominal Exam: Soft, Normal Bowel Sounds - Extremities Exam Extremities Exam: Full ROM. absent: Pedal Edema - Back Exam Back Exam: Full ROM - Neurological Exam Neurological Exam: Alert, Awake, Oriented x3 - Psychiatric Exam Psychiatric exam: Normal Affect, Normal Mood - Skin Skin Exam: Dry, Intact, Warm Assessment and Plan - Assessment and Plan (Free Text) Assessment: Pt is a 48yo male with a PMH of sacroidosis induced cardiomyopathy, 2 brain aneurisms, CHF, atrial fibrillation, gastric ulcer, and hypothyroidism who presents to the ED complaining of chest pain. Plan: Bronchitis vs URI - pt tachycardic 10/10/18 - pt states he has SOB, will start supplemental O2, will walk pt and monitor pulse ox, pt felt dizzy and SOB after walking only a few steps, will set up pt with physical therapy on discharge - pulmonary consulted, Dr Wiley - strep pneumo, mycoplasma pending - blood cultures, NGTD - sputum cultures pending - duonebs Q2 PRN - discontinue rocephin - continue azithromycin - Physical therapy eval and treat Sacroidosis - we are holding methotrexate at this time - pt given two doses of solu medrol 20mg IVP Chronic Diarrhea - pt states he has been having chronic diarrhea for a month, pt states he received a colonoscopy in 2018 and states no pathology was noted. states he was informed to change his diet. - fecal leukocytes, ova and parasites, c diff NEGATIVE CHF - coreg 3.125 PO BID - lasix 40mg PO daily - lisinopril 20 PO daily - spironolactone 25 PO daily ACS rule out - tropnin negative x2 - EKG negative STEMI or signs of ischemia Right upper quadrant US - RUQ US, CBD is not dilated, unremarkable Seizures - continue home trileptal, topamax Atrial fibrillation - eliquis 5mg BID - continue to monitor Hypothyroidism - synthroid - TSH 0.04 - free T4 1.23 Anxiety - continue home xanax 0.5 TID Ppx - SCDs Pt seen, examined, assessment and plan discussed with Dr Maria Victoria Boss PGY1, Internal Medicine Resident <Dionisio Irene - Last Filed: 10/12/18 08:12> Objective - Vital Signs/Intake and Output Vital Signs (last 24 hours): Temp Pulse Resp BP Pulse Ox 98.0 F 60 20 112/77 96 10/11/18 17:47 10/12/18 06:00 10/11/18 17:47 10/11/18 17:47 10/11/18 08:22 Intake and Output: 10/12/18 10/12/18 06:59 18:59 Intake Total 0 Output Total 100 Balance -100 - Medications Medications: Current Medications Albuterol/Ipratropium (Duoneb 3 Mg/0.5 Mg (3 Ml) Ud) 3 ml IH Q2 PRN PRN Reason: Shortness of Breath Albuterol/Ipratropium (Duoneb 3 Mg/0.5 Mg (3 Ml) Ud) 3 ml IH [id number] [facility] Last Admin: 10/12/18 07:49 Dose: 3 ml Alprazolam (Xanax) 0.5 mg PO TID PRN; Protocol PRN Reason: Anxiety Last Admin: 10/11/18 17:16 Dose: 0.5 mg Apixaban (Eliquis) 5 mg PO BID [facility]; Protocol Last Admin: 10/11/18 17:12 Dose: 5 mg Atorvastatin Calcium (Lipitor) 80 mg PO HS [facility] Last Admin: 10/11/18 21:10 Dose: 80 mg Azithromycin (Zithromax) 500 mg PO DAILY [facility] Carvedilol (Coreg) 3.125 mg PO BID [facility] Last Admin: 10/11/18 17:12 Dose: 3.125 mg Furosemide (Lasix) 40 mg PO DAILY [facility] Last Admin: 10/11/18 09:36 Dose: 40 mg Levothyroxine Sodium (Synthroid) 50 mcg PO DAILY [facility] Last Admin: 10/11/18 09:35 Dose: 50 mcg Lisinopril (Zestril) 20 mg PO DAILY [facility] Last Admin: 10/11/18 09:35 Dose: 20 mg Methylprednisolone (Solu-Medrol) 20 mg IVP Q8 [facility] Last Admin: 10/12/18 06:10 Dose: 20 mg Oxcarbazepine (Trileptal) 300 mg PO DAILY [facility]; Protocol Last Admin: 10/11/18 09:35 Dose: 300 mg Oxycodone HCl (Oxycodone Immediate Release Tab) 5 mg PO TID PRN PRN Reason: Pain, moderate (4-7) Last Admin: 10/11/18 17:10 Dose: 5 mg Spironolactone (Aldactone) 25 mg PO DAILY [facility] Last Admin: 10/11/18 09:35 Dose: 25 mg Topiramate (Topamax) 50 mg PO DAILY [facility]; Protocol Last Admin: 10/11/18 09:35 Dose: 50 mg Trazodone HCl (Desyrel) 50 mg PO HS [facility] Last Admin: 10/11/18 21:10 Dose: 50 mg - Labs Labs: 10/12/18 06:00 10/12/18 06:00 PT 18.1 SECONDS (9.4-12.5) H 10/10/18 06:00 INR 1.56 10/10/18 06:00 APTT 31.9 Seconds (25.1-36.5) 10/10/18 06:00 Attending/Attestation - Attestation I have personally seen and examined this patient.: Yes I have fully participated in the care of the patient.: Yes I have reviewed all pertinent clinical information, including history, physical exam and plan: Yes Notes (Text): 10/12/18 08:03 Attending note; Patient seen and examined with resident. Still complaining of shortness of breath on exertion. Using oxygen on and off. Complaining of significant wheezing. Patient stated that he almost fell in the bathroom last night. Complaining of unsteady gait. Bilateral leg weakness which is worsening over months. Patient is a 48 year old male with a PMH of sacroidosis induced cardiomyopathy, 2 brain aneurysms, CHF, atrial fibrillation, pacemaker , chronic diarrhea, gastric ulcer, and hypothyroidism who presents to the ED complaining of chest pain. 1. Severe bronchitis with sarcoidosis history. Still has significant wheezing. Continue oxygen, DuoNeb, IV Solu-Medrol. We will monitor pulse ox with ambulation today. 2. History of cardiomyopathy and pacemaker placement; currently no chest pain. Cardiac enzymes negative. Needs outpatient cardiology follow-up. Continue Coreg, lisinopril, Lasix and Aldactone. Dosage decreased due to dizziness. Monitor blood pressure closely. 3. Chronic diarrhea; patient had 3 episodes last night. Currently tolerating diet. 4. Bilateral lower extremity weakness; as per patient gait is unsteady and lower extremity weakness is slowly worsening over months. Patient was evaluated by his neurologist and recommended rehabilitation. Patient was recently discharged from [facility]. The patient was supposed to go to rehabilitation but sent home due to unknown reasons. 5. Chronic deconditioning. 6. Anxiety depression; continue Xanax. 7. Seizure disorder; continue Trileptal and Topamax. Physical therapy evaluation appreciated. Subacute rehabilitation recommended. Case discussed with case checker in detail. Pending placement. Upon discharge the patient will follow-up with PMD Dr. Payton. Patient needs close follow-up with pulmonary and neurology as outpatient.
[2018-10-11 17:48] VITALS: TEMP 98
[2018-10-11] MEDS: Albuterol-Ipratrop 3 mg / 0.5 (3 ml) UD IH SCH (19:32)
[2018-10-12] MEDS: Albuterol-Ipratrop 3 mg / 0.5 (3 ml) UD IH SCH ×3 (02:00→13:43)
[2018-10-12 03:20] VITALS: PULSE 60
[2018-10-12] MEDS: MethylPREDNISolone 40 mg Vial IVP SCH ×2 (06:10→14:17)
[2018-10-12 06:47] LABS: GRAN # 5.28 (1.4-6.5); HEMOGLOBIN 12.3 g/dL (14.0-18.0); LYMPH % 14.3 % (22.0-35.0); MEAN CELL VOLUME 78.3 fl (80.0-105.0); MEAN CORPUSCULAR HEMOGLOBIN 25.2 pg (25.0-35.0); MEAN CORPUSCULAR HGB CONC 32.2 g/dl (31.0-37.0); MEAN PLATELET VOLUME 9.8 fl (7.0-11.0); MONO # 0.6 (0.1-0.6); MONO % 8.7 % (1.0-6.0); RBC 4.88 10^6/uL (3.5-6.1); WHITE BLOOD COUNT 6.9 10^3/uL (4.5-11.0)
[2018-10-12 07:18] LABS: ALB/GLOB RATIO 0.9 (1.1-1.8); ALBUMIN 3.9 g/dL (3.0-4.8); ALT/SGPT 25 U/L (7-56); AST/SGOT 25 U/L (17-59); BLOOD UREA NITROGEN 19 mg/dL (7-21); CALCIUM 9.3 mg/dL (8.4-10.5); GFR NON-AFRICAN AMERICAN > 60
[2018-10-12] MEDS: oxyCODONE 5 mg Immediate Release Tab PO PRN (09:55)
[2018-10-12] MEDS: Levothyroxine 50 MCG TAB PO SCH (09:56)
[2018-10-12 10:01] VITALS: BP 127/91
--- NOTE | 2018-10-12 15:51 | CP.PCM.DIS ---
<Prateek Boss Dieter - Last Filed: 10/12/18 16:23> Provider - Provider Date of Admission: 10/09/18 14:56 Attending physician: Dionisio Irene MD Consults: 10/09/18 22:19 Inpatient [facility] [employer] Core Measures Referral Routine Comment: aubrey pain bronchospasm Physician Instructions: Reason For Exam: eval Transition In Care/Readmission Reduction Routine Comment: bronchospasm/cp Physician Instructions: Reason For Exam: eval 10/11/18 12:55 Physician Consult Routine Comment: Consulting Provider: Mir Wiley Consulting Physician: Mir Wiley Reason for Consult: sarcoidosis SOB Time Spent in preparation of Discharge (in minutes): 35 Diagnosis - Discharge Diagnosis (1) CHF (congestive heart failure) Status: Chronic Priority: High (2) Bronchitis Status: Acute Priority: High (3) Sarcoidosis Status: Chronic Priority: High (4) Sarcoidosis Status: Chronic Priority: High (5) Chronic diarrhea Status: Chronic Priority: High (6) Atrial fibrillation Status: Acute Priority: High Hospital Course - Lab Results Lab Results: Micro Results 10/10/18 07:00 Stool Stool Culture - Final NO SALMONELLA, SHIGELLA OR CAMPYLOBACTER ISOLATED. 10/09/18 16:30 Blood Blood Culture - Preliminary NO GROWTH AFTER 48 HOURS 10/10/18 07:00 Stool Ova and Parasite Concentrate Exam - Final 10/10/18 07:00 Stool C. difficile Antigen & Toxins A,B - Final Most Recent Lab Values WBC 6.9 10^3/uL (4.5-11.0) D 10/12/18 06:00 RBC 4.88 10^6/uL (3.5-6.1) 10/12/18 06:00 Hgb 12.3 g/dL (14.0-18.0) L 10/12/18 06:00 Hct 38.2 % (42.0-52.0) L 10/12/18 06:00 MCV 78.3 fl (80.0-105.0) L 10/12/18 06:00 MCH 25.2 pg (25.0-35.0) 10/12/18 06:00 MCHC 32.2 g/dl (31.0-37.0) 10/12/18 06:00 RDW 17.0 % (11.5-14.5) H 10/12/18 06:00 Plt Count 224 10^3/uL (120.0-450.0) 10/12/18 06:00 MPV 9.8 fl (7.0-11.0) 10/12/18 06:00 Gran % 77.0 % (50.0-68.0) H 10/12/18 06:00 Lymph % (Auto) 14.3 % (22.0-35.0) L 10/12/18 06:00 [place] % (Auto) 8.7 % (1.0-6.0) H 10/12/18 06:00 Eos % (Auto) 0.0 % (1.5-5.0) L 10/12/18 06:00 Baso % (Auto) 0.0 % (0.0-3.0) 10/12/18 06:00 Gran # 5.28 (1.4-6.5) 10/12/18 06:00 Lymph # (Auto) 1.0 (1.2-3.4) L 10/12/18 06:00 [place] # (Auto) 0.6 (0.1-0.6) 10/12/18 06:00 Eos # (Auto) 0.0 (0.0-0.7) 10/12/18 06:00 Baso # (Auto) 0.00 K/mm3 (0.0-2.0) 10/12/18 06:00 PT 18.1 SECONDS (9.4-12.5) H 10/10/18 06:00 INR 1.56 10/10/18 06:00 APTT 31.9 Seconds (25.1-36.5) 10/10/18 06:00 pO2 151 mm/Hg (30-55) H 10/09/18 10:50 VBG pH 7.42 (7.32-7.43) 10/09/18 10:50 VBG pCO2 37.0 (40-60) L 10/09/18 10:50 VBG HCO3 24.0 mmol/l (21-28) 10/09/18 10:50 VBG Total CO2 25.1 mmol.L (22-28) 10/09/18 10:50 VBG O2 Sat (Calc) 99.1 % (40-65) H 10/09/18 10:50 VBG Base Excess -0.2 mmol/L (0.0-2.0) L 10/09/18 10:50 VBG Potassium 3.1 mmol/L (3.6-5.2) L 10/09/18 10:50 Sodium 137.0 mmol/L (132-148) 10/09/18 10:50 Chloride 107.0 mmol/L (98-107) 10/09/18 10:50 Glucose 95 mg/dl (75-110) 10/09/18 10:50 Lactate 0.7 mmol/L (0.7-2.1) 10/09/18 10:50 FiO2 21.0 % 10/09/18 10:50 Sodium 142 mmol/L (132-148) 10/12/18 06:00 Potassium 3.9 mmol/L (3.6-5.0) 10/12/18 06:00 Chloride 107 mmol/L (98-107) 10/12/18 06:00 Carbon Dioxide 26 mmol/L (21-33) 10/12/18 06:00 Anion Gap 12 (10-20) 10/12/18 06:00 BUN 19 mg/dL (7-21) 10/12/18 06:00 Creatinine 0.9 mg/dl (0.8-1.5) 10/12/18 06:00 Est GFR ( Amer) > 60 10/12/18 06:00 Est GFR (Non-Af Amer) > 60 10/12/18 06:00 POC Glucose (mg/dL) 204 mg/dL (65-110) H 10/09/18 21:30 Random Glucose 112 mg/dL (70-110) H 10/12/18 06:00 Calcium 9.3 mg/dL (8.4-10.5) 10/12/18 06:00 Total Bilirubin 0.5 mg/dL (0.2-1.3) 10/12/18 06:00 AST 25 U/L (17-59) 10/12/18 06:00 ALT 25 U/L (7-56) 10/12/18 06:00 Alkaline Phosphatase 127 U/L (38-126) H D 10/12/18 06:00 Troponin I < 0.01 ng/mL 10/09/18 23:35 Total Protein 7.9 g/dL (5.8-8.3) 10/12/18 06:00 Albumin 3.9 g/dL (3.0-4.8) 10/12/18 06:00 Globulin 4.1 gm/dL 10/12/18 06:00 Albumin/Globulin Ratio 0.9 (1.1-1.8) L 10/12/18 06:00 Free T4 1.23 ng/dL (0.78-2.19) 10/11/18 08:25 TSH 3rd Generation 0.04 mIU/mL (0.46-4.68) L 10/09/18 17:35 Venous Blood Potassium 3.1 mmol/L (3.6-5.2) L 10/09/18 10:50 Stool Leukocytes, Qual Negative (NEGATIVE) 10/10/18 07:00 Urine Opiates Screen Negative (NEGATIVE) 10/09/18 14:40 Urine Methadone Screen Negative (NEGATIVE) 10/09/18 14:40 Ur Barbiturates Screen Negative (NEGATIVE) 10/09/18 14:40 Ur Phencyclidine Scrn Negative (NEGATIVE) 10/09/18 14:40 Ur Amphetamines Screen Negative (NEGATIVE) 10/09/18 14:40 U Benzodiazepines Scrn Positive (NEGATIVE) H 10/09/18 14:40 U Oth Cocaine Metabols Negative (NEGATIVE) 10/09/18 14:40 U Cannabinoids Screen Positive (NEGATIVE) H 10/09/18 14:40 - Hospital Course Hospital Course: Upon Arrival Pt is a 48yo male with a PMH of sacroidosis induced cardiomyopathy, 2 brain aneurisms, CHF, atrial fibrillation, gastric ulcer, and hypothyroidism who presents to the ED complaining of chest pain. Pt reported the chest pain which is worse with exertion and made better with rest. Pt states this pain started about 2 days ago. He denies every having pain like this before. The pain radiates down his left arm and into his left jaw. Pt reports coughing up light green sputum. Pt admits to 4 episodes of diarrhea each day for the past 2 days as well as a small amount of blood in the stool. Pt reports some SOB. Denies sick contacts. Hospitalization Pt treated for bronchitis, started supplemental O2. Pulmonary consulted, Dr Wiley, blood cultures, showed no growth. Pt treated with duonebs. Pt was treated with rocephin and then switched to azithromycin, physical therapy was consulted to eval and treat. Pt sarcoidosis was treated with solu medrol, his home methotrexate was held at this time. Pt states he has been having chronic diarrhea for a month, pt states he received a colonoscopy in 2018 and states no pathology was noted. states he was informed to change his diet. Fecal leukocytes, ova and parasites, c diff NEGATIVE. Pt CHF was treated with his home medications. On physical exam pt has RUQ pain to palpation, RUQ US, CBD is not dilated, unremarkable. Discharge Pt advised to please follow up with primary care doctor, Dr. Payton, within 3-[address] Payton was notified of hospital stay. Please follow up with radiologic technology teacher, Dr. Clark, within 1 week of discharge. You have been given a prescription for: 1. Advair inhaler 1 puff twice per day 2. Ventolin inhaler 1 puff every 6 hours as needed for shortness of breath 3. Medrol dose pack- take as directed 4. Azithromycin pack- take as directed DOSE OF COREG HAS DECREASED FROM 12.5mg TWICE PER DAY to 3.125mg TWICE PER DAY. GIVEN A PRESCRIPTION FOR THIS. Please continue all other home medication as prescribed. Please refrain from illegal substances such as marijuana. If symptoms return, please go to the nearest emergency department. - Date & Time of H&P Date of H&P: 10/12/18 Time of H&P: 08:00 Discharge Exam - Head Exam Head Exam: ATRAUMATIC, NORMOCEPHALIC - Eye Exam Eye Exam: EOMI - ENT Exam ENT Exam: Mucous Membranes Moist - Neck Exam Neck exam: Full Rom - Respiratory Exam Respiratory Exam: Clear to PA & Lateral. absent: Accessory Muscle Use, Respiratory Distress - Cardiovascular Exam Cardiovascular Exam: RRR, +S1, +S2. absent: Diastolic murmur, Systolic Murmur - GI/Abdominal Exam GI & Abdominal Exam: Normal Bowel Sounds - Extremities Exam Extremities exam: full ROM, pedal pulses present - Neurological Exam Neurological exam: Alert, Oriented x3 - Psychiatric Exam Psychiatric exam: Normal Affect, Normal Mood - Skin Skin Exam: Dry, Intact, Warm Discharge Plan - Discharge Medications Prescriptions: Albuterol HFA [Ventolin HFA 90 mcg/actuation (8 g)] 2 puff IH [id number] PRN #1 inh PRN Reason: Shortness Of Breath Azithromycin [Zithromax] 1 gm PO DAILY #1 packet Carvedilol [Coreg] 3.125 mg PO BID #60 tab Fluticasone/Salmeterol 250/50 [Advair Diskus] 1 puff IH Q12 #1 inh Methylprednisolone [Medrol Dose Pack (21 tabs)] 4 mg PO DAILY #21 mg - Follow Up Plan Condition: STABLE Disposition: HOME/ ROUTINE Instructions: Shortness of Breath (Dyspnea) (DC), Chest Pain (DC) Additional Instructions: Please follow up with your primary care doctor, Dr. Payton, within 3-[address] Payton was notified of your hospital stay. Please follow up with your radiologic technology teacher, Dr. Clark, within 1 week of discharge. You have been given a prescription for: 1. Advair inhaler 1 puff twice per day 2. Ventolin inhaler 1 puff every 6 hours as needed for shortness of breath 3. Medrol dose pack- take as directed 4. Azithromycin pack- take as directed YOUR DOSE OF COREG HAS DECREASED FROM 12.5mg TWICE PER DAY to 3.125mg TWICE PER DAY. YOU HAVE BEEN GIVEN A PRESCRIPTION FOR THIS. Please continue all your other home medication as prescribed. Please refrain from illegal substances such as marijuana. If your symptoms return, please go to the nearest emergency department. Referrals: Ben Payton MD [Family Provider] - <Dionisio Irene - Last Filed: 10/12/18 18:20> Provider - Provider Date of Admission: 10/09/18 14:56 Attending physician: Dionisio Irene MD Consults: 10/09/18 22:19 Inpatient [facility] [employer] Core Measures Referral Routine Comment: aubrey pain bronchospasm Physician Instructions: Reason For Exam: eval Transition In Care/Readmission Reduction Routine Comment: bronchospasm/cp Physician Instructions: Reason For Exam: eval 10/11/18 12:55 Physician Consult Routine Comment: Consulting Provider: Mir Wiley Consulting Physician: Mir Wiley Reason for Consult: sarcoidosis SOB Hospital Course - Lab Results Lab Results: Micro Results 10/09/18 16:30 Blood Blood Culture - Preliminary NO GROWTH AFTER 3 DAYS 10/10/18 07:00 Stool Stool Culture - Final NO SALMONELLA, SHIGELLA OR CAMPYLOBACTER ISOLATED. 10/10/18 07:00 Stool Ova and Parasite Concentrate Exam - Final 10/10/18 07:00 Stool C. difficile Antigen & Toxins A,B - Final Most Recent Lab Values WBC 6.9 10^3/uL (4.5-11.0) D 10/12/18 06:00 RBC 4.88 10^6/uL (3.5-6.1) 10/12/18 06:00 Hgb 12.3 g/dL (14.0-18.0) L 10/12/18 06:00 Hct 38.2 % (42.0-52.0) L 10/12/18 06:00 MCV 78.3 fl (80.0-105.0) L 10/12/18 06:00 MCH 25.2 pg (25.0-35.0) 10/12/18 06:00 MCHC 32.2 g/dl (31.0-37.0) 10/12/18 06:00 RDW 17.0 % (11.5-14.5) H 10/12/18 06:00 Plt Count 224 10^3/uL (120.0-450.0) 10/12/18 06:00 MPV 9.8 fl (7.0-11.0) 10/12/18 06:00 Gran % 77.0 % (50.0-68.0) H 10/12/18 06:00 Lymph % (Auto) 14.3 % (22.0-35.0) L 10/12/18 06:00 [place] % (Auto) 8.7 % (1.0-6.0) H 10/12/18 06:00 Eos % (Auto) 0.0 % (1.5-5.0) L 10/12/18 06:00 Baso % (Auto) 0.0 % (0.0-3.0) 10/12/18 06:00 Gran # 5.28 (1.4-6.5) 10/12/18 06:00 Lymph # (Auto) 1.0 (1.2-3.4) L 10/12/18 06:00 [place] # (Auto) 0.6 (0.1-0.6) 10/12/18 06:00 Eos # (Auto) 0.0 (0.0-0.7) 10/12/18 06:00 Baso # (Auto) 0.00 K/mm3 (0.0-2.0) 10/12/18 06:00 PT 18.1 SECONDS (9.4-12.5) H 10/10/18 06:00 INR 1.56 10/10/18 06:00 APTT 31.9 Seconds (25.1-36.5) 10/10/18 06:00 pO2 151 mm/Hg (30-55) H 10/09/18 10:50 VBG pH 7.42 (7.32-7.43) 10/09/18 10:50 VBG pCO2 37.0 (40-60) L 10/09/18 10:50 VBG HCO3 24.0 mmol/l (21-28) 10/09/18 10:50 VBG Total CO2 25.1 mmol.L (22-28) 10/09/18 10:50 VBG O2 Sat (Calc) 99.1 % (40-65) H 10/09/18 10:50 VBG Base Excess -0.2 mmol/L (0.0-2.0) L 10/09/18 10:50 VBG Potassium 3.1 mmol/L (3.6-5.2) L 10/09/18 10:50 Sodium 137.0 mmol/L (132-148) 10/09/18 10:50 Chloride 107.0 mmol/L (98-107) 10/09/18 10:50 Glucose 95 mg/dl (75-110) 10/09/18 10:50 Lactate 0.7 mmol/L (0.7-2.1) 10/09/18 10:50 FiO2 21.0 % 10/09/18 10:50 Sodium 142 mmol/L (132-148) 10/12/18 06:00 Potassium 3.9 mmol/L (3.6-5.0) 10/12/18 06:00 Chloride 107 mmol/L (98-107) 10/12/18 06:00 Carbon Dioxide 26 mmol/L (21-33) 10/12/18 06:00 Anion Gap 12 (10-20) 10/12/18 06:00 BUN 19 mg/dL (7-21) 10/12/18 06:00 Creatinine 0.9 mg/dl (0.8-1.5) 10/12/18 06:00 Est GFR ( Amer) > 60 10/12/18 06:00 Est GFR (Non-Af Amer) > 60 10/12/18 06:00 POC Glucose (mg/dL) 204 mg/dL (65-110) H 10/09/18 21:30 Random Glucose 112 mg/dL (70-110) H 10/12/18 06:00 Calcium 9.3 mg/dL (8.4-10.5) 10/12/18 06:00 Total Bilirubin 0.5 mg/dL (0.2-1.3) 10/12/18 06:00 AST 25 U/L (17-59) 10/12/18 06:00 ALT 25 U/L (7-56) 10/12/18 06:00 Alkaline Phosphatase 127 U/L (38-126) H D 10/12/18 06:00 Troponin I < 0.01 ng/mL 10/09/18 23:35 Total Protein 7.9 g/dL (5.8-8.3) 10/12/18 06:00 Albumin 3.9 g/dL (3.0-4.8) 10/12/18 06:00 Globulin 4.1 gm/dL 10/12/18 06:00 Albumin/Globulin Ratio 0.9 (1.1-1.8) L 10/12/18 06:00 Free T4 1.23 ng/dL (0.78-2.19) 10/11/18 08:25 TSH 3rd Generation 0.04 mIU/mL (0.46-4.68) L 10/09/18 17:35 Venous Blood Potassium 3.1 mmol/L (3.6-5.2) L 10/09/18 10:50 Stool Leukocytes, Qual Negative (NEGATIVE) 10/10/18 07:00 Urine Opiates Screen Negative (NEGATIVE) 10/09/18 14:40 Urine Methadone Screen Negative (NEGATIVE) 10/09/18 14:40 Ur Barbiturates Screen Negative (NEGATIVE) 10/09/18 14:40 Ur Phencyclidine Scrn Negative (NEGATIVE) 10/09/18 14:40 Ur Amphetamines Screen Negative (NEGATIVE) 10/09/18 14:40 U Benzodiazepines Scrn Positive (NEGATIVE) H 10/09/18 14:40 U Oth Cocaine Metabols Negative (NEGATIVE) 10/09/18 14:40 U Cannabinoids Screen Positive (NEGATIVE) H 10/09/18 14:40 Attending/Attestation - Attestation I have personally seen and examined this patient.: Yes I have fully participated in the care of the patient.: Yes I have reviewed all pertinent clinical information, including history, physical exam and plan: Yes Notes (Text): 10/12/18 18:19 Attending note; Patient seen and examined with resident. Still complaining of wheezing. Getting DuoNeb. Patient is a 48 year old male with a PMH of sacroidosis induced cardiomyopathy, 2 brain aneurysms, CHF, atrial fibrillation, pacemaker , chronic diarrhea, gastric ulcer, and hypothyroidism who presents to the ED complaining of chest pain. 1. Severe bronchitis with sarcoidosis history. Wheezing is improving. Continue oxygen, DuoNeb, IV Solu-Medrol. We will discharge with po steroids and zithromax. Continue breathing treatments. 2. History of cardiomyopathy and pacemaker placement; currently no chest pain. Cardiac enzymes negative. Needs outpatient cardiology follow-up. Continue Coreg, lisinopril, Lasix and Aldactone. Dosage decreased due to dizziness. 3. Chronic diarrhea; improving. Currently tolerating diet. 4. Bilateral lower extremity weakness; as per patient gait is unsteady and lower extremity weakness is slowly worsening over months. Patient was evaluated by his neurologist and recommended rehabilitation. Patient was recently discharged from [facility]. The patient was supposed to go to rehabilitation but sent home due to unknown reasons. 5. Chronic deconditioning. 6. Anxiety depression; continue Xanax. 7. Seizure disorder; continue Trileptal and Topamax. Physical therapy evaluation appreciated. Patient will be discharged to subacute rehabilitation. Case discussed with case worker in detail. Upon discharge the patient will follow-up with PMD Dr. Payton. Patient needs close follow-up with pulmonary and neurology as outpatient.
== END 2018-10-12 15:50 | DRG 203 ==
LOC: ED 09:52 → ERH 14:56 → 3RNO 21:03
PROVIDERS: ADMIT Hospitalist; ATTEND Internal Medicine
DX: J20.9 Acute bronchitis, unspecified (principal); I11.0 Hypertensive heart disease with heart failure; I50.9 Heart failure, unspecified; D86.85 Sarcoid myocarditis; E03.9 Hypothyroidism, unspecified; I48.91 Unspecified atrial fibrillation; K52.9 Noninfective gastroenteritis and colitis, unspecified; G40.909 Epilepsy, unspecified, not intractable, without status epilepticus; F41.8 Other specified anxiety disorders; K21.9 Gastro-esophageal reflux disease without esophagitis; Z86.73 Personal history of transient ischemic attack (TIA), and cerebral infarction without residual deficits; I25.2 Old myocardial infarction; Z87.11 Personal history of peptic ulcer disease; Z95.5 Presence of coronary angioplasty implant and graft; Z95.810 Presence of automatic (implantable) cardiac defibrillator

== ENCOUNTER 2018-12-04 10:23 | Emergency (ER) | payer MEDICARE | END 2018-12-04 19:29 | disposition home or self-care (01) | LOC: ED 10:23 ==

== ENCOUNTER 2019-02-28 18:58 | Emergency (ER) | payer MEDICARE ==
[2019-02-28 18:59] VITALS: BMI 30.2
[2019-02-28] MEDS ORDERED: guaiFENesin-Codeine 100-10mg/5ml Syrup (5 ml) UD PO ONE (19:28)
[2019-02-28 19:29] VITALS: RESP 18; TEMP 98.7
--- NOTE | 2019-02-28 19:30 | ED PDOC ---
Arrival/HPI - General Chief Complaint: Shortness Of Breath Time Seen by Provider: 02/28/19 19:11 Historian: Patient - History of Present Illness Narrative History of Present Illness (Text): 02/28/19 19:26 A 48 year old male, whose past medical history includes sacroidosis induced cardiomyopathy, pacemaker, 2 brain aneurisms, lung aneurysm, CHF, atrial fibrillation on Eliquis, gastric ulcer, and hypothyroidism, presents to the ED complaining of chest pain and shortness of breath since today. Patient notes associated dizziness. Patient also reports a cough with green phlegm for the past 5 days. Patient took cough syrups and cough drops with no improvement. Patient denies any recent travel, fevers, vomiting, or any other complaints. Time/Duration: 4-6 hours Symptom Onset: Gradual Symptom Course: Unchanged Activities at Onset: Light Context: Home Past Medical History - Provider Review Nursing Documentation Reviewed: Yes - Infectious Disease Hx of Infectious Diseases: None - Cardiac Hx Cardiac Disorders: Yes Hx KS: Yes - Pulmonary Hx Respiratory Disorders: Yes - Neurological Hx Neurological Disorder: Yes HX Cerebrovascular Accident: Yes Other/Comment: ANEURSYM - HEENT Hx HEENT Disorder: No - Renal Hx Renal Disorder: No - Endocrine/Metabolic Hx Endocrine Disorders: Yes Other/Comment: THYROID DISEASE - Hematological/Oncological Hx Blood Disorders: No - Integumentary Hx Dermatological Disorder: Yes - Musculoskeletal/Rheumatological Hx Musculoskeletal Disorders: Yes Other/Comment: R ANKLE INJURY - Gastrointestinal Hx Gastrointestinal Disorders: Yes Hx Gastroesophageal Reflux: Yes - Genitourinary/Gynecological Hx Genitourinary Disorders: Yes Hx Prostate Problems: Yes - Psychiatric Hx Psychophysiologic Disorder: Yes Hx Anxiety: Yes Hx Bipolar Disorder: Yes Hx Depression: Yes Hx Substance Use: Yes (marijuana) - Surgical History Hx Cardiac Catheterization: Yes Hx Coronary Stent: Yes Other/Comment: cerebral aneurysm clips/aicd/ppm - Anesthesia Hx Anesthesia: Yes - Suicidal Assessment Feels Threatened In Home Enviroment: No Family/Social History - Physician Review Nursing Documentation Reviewed: Yes Family/Social History: No Known Family HX Smoking Status: Never Smoked Hx Alcohol Use: Yes (occasional) Hx Substance Use: Yes (marijuana) Substance used: heroin Allergies/Home Meds Allergies/Adverse Reactions: Allergies No Known Allergies Allergy (Verified 12/04/18 10:32) Home Medications: Home Meds Medication Instructions Recorded Confirmed Alprazolam [Xanax] 0.5 mg PO TID PRN 06/22/16 12/04/18 Atorvastatin Calcium 80 mg PO HS 06/22/16 12/04/18 Topiramate 50 mg PO DAILY 06/22/16 12/04/18 Furosemide [Lasix] 40 mg PO DAILY 07/09/16 12/04/18 Apixaban [Eliquis] 5 mg PO BID 10/09/18 12/04/18 Fludrocortisone [Florinef] 0.1 mg PO MWF 10/09/18 12/04/18 Levothyroxine [Synthroid] 50 mcg PO DAILY 10/09/18 12/04/18 Lisinopril [Zestril] 20 mg PO DAILY 10/09/18 12/04/18 Midodrine [Proamatine] 10 mg PO DAILY 10/09/18 12/04/18 Spironolactone [Aldactone] 25 mg PO DAILY 10/09/18 12/04/18 oxyCODONE [oxyCODONE Immediate 5 mg PO TID PRN 10/09/18 12/04/18 Release Tab] traZODone [Desyrel] 50 mg PO HS 10/09/18 12/04/18 Review of Systems - Physician Review All systems were reviewed & negative as marked: Yes - Review of Systems Constitutional: absent: Fevers Respiratory: SOB, Cough Cardiovascular: Chest Pain Gastrointestinal: absent: Vomiting Neurological: Dizziness Physical Exam Appearance: Positive for: Well-Appearing, Non-Toxic, Comfortable Pain Distress: None Mental Status: Positive for: Alert and Oriented X 3 - Systems Exam Head: Present: Atraumatic, Normocephalic Pupils: Present: PERRL Extroacular Muscles: Present: EOMI Conjunctiva: Present: Normal Mouth: Present: Moist Mucous Membranes Respiratory/Chest: Present: Other (Coarse breath sounds bilaterally.). No: Wheezes, Tachypneic Cardiovascular: Present: Other (Has palpable pacemaker on right side of chest.) Abdomen: Present: Other (Soft). No: Tenderness, Distention Psychiatric: Present: Alert, Oriented x 3, Normal Insight, Normal Concentration Medical Decision Making ED Course and Treatment: 02/28/19 19:32 Impression: A 48 year old male who presents to the ED complaining of chest pain and shortn ess of breath since today. Plan: -- Labs -- VBG -- Chest X-Ray -- Duoneb -- Robitussin -- Solumedrol -- Blood Culture -- IV Fluids -- Reassess and disposition Prior Visits: Notes and results from previous visits were reviewed. Patient was last seen in the emergency department on 12/04/18. Progress Notes: 02/28/19 20:[address] Louise who will resume the patient's care. - Scribe Statement The provider has reviewed the documentation as recorded by the Arjun Fatima Provider Scribe Attestation: All medical record entries made by the Arjun were at my direction and personally dictated by me. I have reviewed the chart and agree that the record accurately reflects my personal performance of the history, physical exam, medical decision making, and the department course for this patient. I have also personally directed, reviewed, and agree with the discharge instructions and disposition. Disposition/Present on Arrival - Present on Arrival History of DVT/PE: No History of Uncontrolled Diabetes: No Urinary Catheter: No History of Decub. Ulcer: No History Surgical Site Infection Following: None - Disposition Forms: [employer] (Swedish)
[2019-02-28] MEDS ORDERED: Morphine 4 mg/ml ISec IVP STA (19:46)
[2019-02-28] MEDS: Albuterol-Ipratrop 3 mg / 0.5 (3 ml) UD IH SCH ×3 (19:50→20:20)
[2019-02-28 20:16] LABS: BASO # 0.02 K/mm3 (0.0-2.0); BASO % 0.3 % (0.0-3.0); EOS # 0.1 (0.0-0.7); EOS % 1.4 % (1.5-5.0); HEMOGLOBIN 11.8 g/dL (14.0-18.0); LYMPH # 2.1 (1.2-3.4); LYMPH % 29.9 % (22.0-35.0); MEAN CELL VOLUME 80.3 fl (80.0-105.0); MEAN CORPUSCULAR HEMOGLOBIN 25.8 pg (25.0-35.0); MEAN CORPUSCULAR HGB CONC 32.2 g/dl (31.0-37.0); MONO # 0.9 (0.1-0.6); MONO % 12.7 % (1.0-6.0); RBC 4.57 10^6/uL (3.5-6.1); RED CELL DISTRIBUTION WIDTH 15.2 % (11.5-14.5); WHITE BLOOD COUNT 6.9 10^3/uL (4.5-11.0)
[2019-02-28 20:20] LABS: ALB/GLOB RATIO 1.1 (1.1-1.8); ALBUMIN 3.6 g/dL (3.0-4.8); ALT/SGPT 17 U/L (7-56); AST/SGOT 21 U/L (17-59); BLOOD UREA NITROGEN 16 mg/dL (7-21); CALCIUM 8.7 mg/dL (8.4-10.5); GFR NON-AFRICAN AMERICAN 58; INR 1.54; PARTIAL THROMBOPLASTIN TIME 35.8 Seconds (26.9-38.3); PROTHROMBIN TIME 17.1 SECONDS (9.4-12.5)
[2019-02-28 20:32] LABS: B-TYPE NATRIURETIC PEPTIDE 591 pg/mL (0-450); TROPONIN I < 0.01 ng/mL
[2019-02-28 20:34] LABS: VENOUS BLOOD GAS BASE EXCESS -0.6 mmol/L (0.0-2.0); VENOUS BLOOD GAS PO2 162 mm/Hg (30-55); VENOUS BLOOD PH 7.35 (7.32-7.43)
--- NOTE | 2019-02-28 20:57 | ED PDOC ---
Physical Exam Vital Signs Reviewed: Yes Vital Signs Temp Pulse Resp BP Pulse Ox 02/28/19 19:28 98.7 F 81 18 129/85 100 Temperature: Afebrile Blood Pressure: Normal Pulse: Regular Respiratory Rate: Normal Appearance: Positive for: Well-Appearing, Non-Toxic, Comfortable Pain Distress: None Mental Status: Positive for: Alert and Oriented X 3 Medical Decision Making ED Course and Treatment: 02/28/19 20:53 Case endorsed to me by Dr Yin pending labs and chest X-ray. Patient came to the ER complaining of cough and chest congestion. Patient was given breathing treatments and states that he feels much better. Patient states he will follow up with pmd, will be given prescriptions. - Lab Interpretations Lab Results: pO2 162 mm/Hg (30-55) H 02/28/19 20:22 VBG pH 7.35 (7.32-7.43) 02/28/19 20:22 VBG pCO2 46.0 (40-60) 02/28/19 20:22 VBG HCO3 25.4 mmol/l (21-28) 02/28/19 20:22 VBG Total CO2 26.8 mmol.L (22-28) 02/28/19 20:22 VBG O2 Sat (Calc) 99.1 % (40-65) H 02/28/19 20:22 VBG Base Excess -0.6 mmol/L (0.0-2.0) L 02/28/19 20:22 VBG Potassium 3.7 mmol/L (3.6-5.2) 02/28/19 20:22 Sodium 139.0 mmol/L (132-148) 02/28/19 20:22 Chloride 109.0 mmol/L (98-107) H 02/28/19 20:22 Glucose 90 mg/dl (75-110) 02/28/19 20:22 Lactate 0.9 mmol/L (0.7-2.1) 02/28/19 20:22 FiO2 21.0 % 02/28/19 20:22 PT 17.1 SECONDS (9.4-12.5) H 02/28/19 20:00 INR 1.54 02/28/19 20:00 APTT 35.8 Seconds (26.9-38.3) 02/28/19 20:00 Troponin I < 0.01 ng/mL 02/28/19 20:00 NT-Pro-B Natriuret Pep 591 pg/mL (0-450) H 02/28/19 20:00 Total Bilirubin 0.3 mg/dL (0.2-1.3) 02/28/19 20:00 AST 21 U/L (17-59) 02/28/19 20:00 ALT 17 U/L (7-56) 02/28/19 20:00 Alkaline Phosphatase 79 U/L (38-126) 02/28/19 20:00 Total Protein 6.8 g/dL (5.8-8.3) 02/28/19 20:00 Albumin 3.6 g/dL (3.0-4.8) 02/28/19 20:00 Globulin 3.2 gm/dL 02/28/19 20:00 Albumin/Globulin Ratio 1.1 (1.1-1.8) 02/28/19 20:00 - RAD Interpretation Radiology Orders: 02/28/19 19:26 CHEST PORTABLE [RAD] Stat - Medication Orders Current Medication Orders: Discontinued Medications Albuterol/Ipratropium (Duoneb 3 Mg/0.5 Mg (3 Ml) Ud) 3 ml IH Q15M JEYSON Stop: 02/28/19 20:01 Last Admin: 02/28/19 20:20 Dose: 3 ml Guaifenesin/Codeine Phosphate (Robitussin W/Codeine) 5 ml PO ONCE ONE Stop: 02/28/19 19:29 Last Admin: 02/28/19 19:53 Dose: 5 ml Methylprednisolone (Solu-Medrol) 125 mg IVP STAT STA Stop: 02/28/19 19:28 Last Admin: 02/28/19 19:50 Dose: 125 mg IVP Administration Document 02/28/19 19:50 KV (Rec: 02/28/19 19:54 [facility] [place] [id number]) Charges for Administration # of IVP Administrations 1 Morphine Sulfate (Morphine) 4 mg IVP STAT STA Stop: 02/28/19 19:47 Last Admin: 02/28/19 19:59 Dose: 4 mg MAR Pain Assessment Document 02/28/19 19:59 KV (Rec: 02/28/19 20:00 [facility] [place] [id number]) Pain Reassessment Is this a pain reassessment? No Sleep Is patient sleeping during reassessment? No Presence of Pain Presence of Pain Yes Pain Scale Used Protocol: PSCALES Pain Scale Used Numeric Location Pain Location Body Site Chest Description Description Constant Intensity of Pain at present 9 IVP Administration Document 02/28/19 19:59 KV (Rec: 02/28/19 20:00 [facility] [place] [id number]) Charges for Administration # of IVP Administrations 1 - Scribe Statement The provider has reviewed the documentation as recorded by the Scribe Ben Ferrara All medical record entries made by the Scribe were at my direction and personally dictated by me. I have reviewed the chart and agree that the record accurately reflects my personal performance of the history, physical exam, medical decision making, and the department course for this patient. I have also personally directed, reviewed, and agree with the discharge instructions and d isposition. Disposition/Present on Arrival - Present on Arrival Any Indicators Present on Arrival: No History of DVT/PE: No History of Uncontrolled Diabetes: No Urinary Catheter: No History of Decub. Ulcer: No History Surgical Site Infection Following: None - Disposition Have Diagnosis and Disposition been Completed?: Yes Diagnosis: Bronchitis, Sarcoidosis Disposition: HOME/ ROUTINE Disposition Time: 20:50 Condition: IMPROVED Discharge Instructions (ExitCare): Chronic Bronchitis (DC) Additional Instructions: DRU VALENTINO, thank you for letting us take care of you today. The emergency medical care you received today was directed at your acute symptoms. If you were prescribed any medication, please fill it and take as directed. It may take several days for your symptoms to resolve. Return to the Emergency Department if your symptoms worsen, do not improve, or if you have any other problems. Please contact your doctor or call one of the physicians/clinics you have been referred to that are listed on the Patient Visit Information form that is included in your discharge packet. Bring any paperwork you were given at discharge with you along with any medications you are taking to your follow up visit. Our treatment cannot replace ongoing medical care by a primary care provider outside of the emergency department. Thank you for allowing the [facility] team to be part of your care today. Follow up with your primary care doctor in 2-3 days for re-evaluation and further management. Prescriptions: Azithromycin [Zithromax] 250 mg PO DAILY #6 tab predniSONE [Prednisone] 40 mg PO DAILY #10 tab Referrals: [facility], [Non-Staff] - Follow up with primary Forms: [employer] (Italian)
[2019-02-28 21:41] VITALS: BP 129/73; PULSE 79; O2SAT 99
--- NOTE | 2019-03-01 10:50 | RAD ---
Date of service: 02/28/2019 HISTORY: cough w/ h/o sarcoidosis COMPARISON: 12/04/2018 FINDINGS: LUNGS: The lungs are hyperinflated and there is peribronchial thickening with chronic changes in both lungs. No focal consolidation. PLEURA: No pleural effusions or pneumothorax. CARDIOVASCULAR: There is mild cardiomegaly. There is stable position of right-sided AICD. No aortic atherosclerotic calcifications present. OSSEOUS STRUCTURES: Within normal limits for the patient's age. VISUALIZED UPPER ABDOMEN: Normal. OTHER FINDINGS: None. IMPRESSION: No active pulmonary disease. COPD.
--- NOTE | 2019-03-01 11:49 | CARD ---
APPROVED REPORT Date of service: 02/28/2019 EKG Measurement Heart [id number] <Conclusion> Atrial sense ventricular pacemaker with underlying sinus tachycardia Abnormal EKG
== END 2019-02-28 20:41 | disposition home or self-care (01) ==
LOC: ED 18:58
DX: J40 Bronchitis, not specified as acute or chronic (principal); D86.9 Sarcoidosis, unspecified; I42.9 Cardiomyopathy, unspecified; I25.2 Old myocardial infarction; I48.91 Unspecified atrial fibrillation; I50.9 Heart failure, unspecified; Z86.73 Personal history of transient ischemic attack (TIA), and cerebral infarction without residual deficits; Z95.5 Presence of coronary angioplasty implant and graft; Z95.0 Presence of cardiac pacemaker
CPT/HCPCS: 71045; 80053; 82803; 83735; 83880; 84484; 85025; 85610; 85730; 87040; 93005; 94640; 96374; 96375; 99284; J2270; J2930

== ENCOUNTER 2019-03-02 12:22 | Emergency (ER) | payer MEDICARE ==
[2019-03-02 12:33] VITALS: BMI 29.8
[2019-03-02] MEDS: Albuterol-Ipratrop 3 mg / 0.5 (3 ml) UD IH SCH ×3 (12:42→13:18)
--- NOTE | 2019-03-02 12:43 | ED PDOC ---
Arrival/HPI - General Time Seen by Provider: 03/02/19 12:25 Historian: Patient, Spouse - History of Present Illness Narrative History of Present Illness (Text): 03/02/19 12:38 48 yo male with h/o Sarcoidosis (chronic steroids), CHF, PCM, Afib (Eliquis), H ypothyrodism, Gastric Ulcer, Brain Aneurysm x2, Lung Aneurysm, presents to the ED c/o shortness of breathe, and cough with chest pressure intermittent x 1 week. States he came in 2 days ago, they gave him steroids and breathing treatments and he felt better so he went home. He has not been able to get his medications until this morning. He decided to come in today either way to get treatment. No palpitations. No lightheadednes and dizziness. No fever, chills or bodyaches. He only takes this chronic prednisone 40mg intermittently because he hates that he gains weight from it. PMD: Dr. Ben Payton Past Medical History - Provider Review Nursing Documentation Reviewed: Yes - Travel History Have you recently traveled outside [place] w/in the past 3 mons?: No - Infectious Disease Hx of Infectious Diseases: None - Cardiac Hx Cardiac Disorders: Yes Hx OK: Yes - Pulmonary Hx Respiratory Disorders: Yes - Neurological Hx Neurological Disorder: Yes HX Cerebrovascular Accident: Yes Other/Comment: ANEURSYM - HEENT Hx HEENT Disorder: No - Renal Hx Renal Disorder: No - Endocrine/Metabolic Hx Endocrine Disorders: Yes Other/Comment: THYROID DISEASE - Hematological/Oncological Hx Blood Disorders: No - Integumentary Hx Dermatological Disorder: Yes - Musculoskeletal/Rheumatological Hx Musculoskeletal Disorders: Yes Other/Comment: R ANKLE INJURY - Gastrointestinal Hx Gastrointestinal Disorders: Yes Hx Gastroesophageal Reflux: Yes - Genitourinary/Gynecological Hx Genitourinary Disorders: Yes Hx Prostate Problems: Yes - Psychiatric Hx Psychophysiologic Disorder: Yes Hx Anxiety: Yes Hx Bipolar Disorder: Yes Hx Depression: Yes Hx Substance Use: Yes (marijuana) - Surgical History Hx Cardiac Catheterization: Yes Hx Coronary Stent: Yes Other/Comment: cerebral aneurysm clips/aicd/ppm - Anesthesia Hx Anesthesia: Yes - Suicidal Assessment Feels Threatened In Home Enviroment: No Family/Social History - Physician Review Nursing Documentation Reviewed: Yes Family/Social History: No Known Family HX Smoking Status: Never Smoked Hx Alcohol Use: Yes (occasional) Hx Substance Use: Yes (marijuana) Substance used: heroin Allergies/Home Meds Allergies/Adverse Reactions: Allergies No Known Allergies Allergy (Verified 03/02/19 12:59) Home Medications: Home Meds Medication Instructions Recorded Confirmed Alprazolam [Xanax] 0.5 mg PO TID PRN 06/22/16 03/02/19 Atorvastatin Calcium 80 mg PO HS 06/22/16 03/02/19 Topiramate 50 mg PO DAILY 06/22/16 03/02/19 Furosemide [Lasix] 40 mg PO DAILY 07/09/16 03/02/19 Apixaban [Eliquis] 5 mg PO BID 10/09/18 03/02/19 Fludrocortisone [Florinef] 0.1 mg PO MWF 10/09/18 03/02/19 Levothyroxine [Synthroid] 50 mcg PO DAILY 10/09/18 03/02/19 Lisinopril [Zestril] 20 mg PO DAILY 10/09/18 03/02/19 Midodrine [Proamatine] 10 mg PO DAILY 10/09/18 03/02/19 Spironolactone [Aldactone] 25 mg PO DAILY 10/09/18 03/02/19 oxyCODONE [oxyCODONE Immediate 5 mg PO TID PRN 10/09/18 03/02/19 Release Tab] traZODone [Desyrel] 50 mg PO HS 10/09/18 03/02/19 Review of Systems - Review of Systems Constitutional: Normal Eyes: Normal ENT: Normal Respiratory: SOB, Cough, Sputum Cardiovascular: Chest Pain, MYERS. absent: Palpitations, Edema, Calf Pain, Orthopnea, Syncope Gastrointestinal: Normal. absent: Abdominal Pain Genitourinary Male: Normal Musculoskeletal: Normal Skin: Normal Neurological: Normal Endocrine: Normal Hemo/Lymphatic: Normal Psychiatric: Normal Physical Exam Vital Signs Reviewed: Yes Temperature: Afebrile Blood Pressure: Normal Pulse: Regular Respiratory Rate: Normal Appearance: Positive for: Non-Toxic, Comfortable, Ill-Appearing Pain Distress: None Mental Status: Positive for: Alert and Oriented X 3 - Systems Exam Head: Present: Atraumatic, Normocephalic Pupils: Present: PERRL Extroacular Muscles: Present: EOMI Conjunctiva: Present: Normal Mouth: Present: Moist Mucous Membranes Pharnyx: Present: Normal. No: ERYTHEMA, EXUDATE Neck: Present: Normal Range of Motion Respiratory/Chest: Present: Good Air Exchange, Wheezes, Rhonchi. No: Respiratory Distress, Accessory Muscle Use, Decreased Breath Sounds, Rales, Retracting, Tachypneic Cardiovascular: Present: Regular Rate and Rhythm, Normal S1, S2. No: Murmurs Abdomen: No: Tenderness, Distention, Peritoneal Signs Back: Present: Normal Inspection Upper Extremity: Present: Normal Inspection. No: Cyanosis, Edema Lower Extremity: Present: Normal Inspection. No: Edema Neurological: Present: GCS=15, CN II-XII Intact, Speech Normal, Motor Func Grossly Intact, Normal Sensory Function, Memory Normal Skin: Present: Warm, Dry, Normal Color. No: Rashes Psychiatric: Present: Alert, Oriented x 3, Normal Insight, Normal Concentration Medical Decision Making ED Course and Treatment: 03/02/19 12:45 48 yo male with h/o Sarcoidosis (chronic steroids), CHF, PCM, Afib (Eliquis), Hypothyrodism, Gastric Ulcer, Brain Aneurysm x2, Lung Aneurysm, presents with shortness of breathe and cough with chest pressure DDx: Sarcoidosis r/o PNA r/o CHF/Cardiac -- Labs -- EKG -- CXR -- Duonebs, Solumedrol Will treat and reevaluate. 03/02/19 13:30 EKG paced at [address] Elevations Patient requesting pain medication. States he takes oxycodone for his sarcoidosis, stomach and chest pains. Morphine offered him relief at last visit he states. Will give Morphine 4mg IV. 03/02/19 14:12 Patient feels much better. Lungs are clear. No w/r/r. Oxy sat nl. He does not appear in respiratory distress. WBC 19. Patient has no fever. CXR normal with no infiltrates. He has antibiotics already prescribed - Azithromycin, which he will start taking today. He was just started on steroid which my have increased his WBC. His symptoms are most consistant with bronchitis, sarcoidosis. He does not want to stay in the hospital. 03/02/19 14:28 Leaving Against Medical Advice (AMA): The patient is choosing to leave against medical advice. I have personally explained to the patient that choosing to do so may result in permanent bodily harm, disability, or . I have discussed at great length that without further evaluation and monitoring there may be unforeseen circumstances and/or deterioration causing permanent bodily harm or as a result of their choice. The patient is alert, oriented, and shows the mental capacity to make clear decisions regarding the patients health care at this time. The patient continues to wish to leave against medical advice. In light of the patients decision to leave against medical advice, follow-up has been arranged and the patient is aware of the importance to following up as instructed. The patient has been advised that they should return to the emergency room immediately if they change their mind at any time, or if their condition begins to change or worsen in any way. - RAD Interpretation Radiology Orders: 03/02/19 12:33 CHEST PORTABLE [RAD] Stat - Medication Orders Current Medication Orders: Albuterol/Ipratropium (Duoneb 3 Mg/0.5 Mg (3 Ml) Ud) 3 ml IH Q15M JEYSON Stop: 03/02/19 13:16 Methylprednisolone (Solu-Medrol) 125 mg IVP STAT STA Stop: 03/02/19 12:38 Disposition/Present on Arrival - Present on Arrival Any Indicators Present on Arrival: No History of DVT/PE: No History of Uncontrolled Diabetes: No Urinary Catheter: No History Surgical Site Infection Following: None - Disposition Have Diagnosis and Disposition been Completed?: Yes Diagnosis: Sarcoidosis, Hypokalemia, Chest pain, Bronchitis Disposition: AGAINST MEDICAL ADVICE Disposition Time: 14:13 Patient Plan: Discharge Condition: IMPROVED Discharge Instructions (ExitCare): Sarcoidosis (DC), Chest Pain (ED) Additional Instructions: DUR VALENTINO, thank you for letting us take care of you today. Your provider was Vishal Adams DO and you were treated for Bronchitis, Sarcoidosis. The emergency medical care you received today was directed at your acute symptoms. If you were prescribed any medication, please fill it and take as directed. It may take several days for your symptoms to resolve. Return to the Emergency Department if your symptoms worsen, do not improve, or if you have any other problems. Please contact your doctor or call one of the physicians/clinics you have been referred to that are listed on the Patient Visit Information form that is included in your discharge packet. Bring any paperwork you were given at discharge with you along with any medications you are taking to your follow up visit. Our treatment cannot replace ongoing medical care by a primary care provider outside of the emergency department. Thank you for allowing the [facility] team to be part of your care today. If you had an X-Ray or CT scan: A Radiologist will review the ED reading if any change in treatment is needed we will contact you. If you had a blood, urine, or wound culture: It will take several days for the results, if any change in treatment is needed we will contact you. If you had an STI test: It will take 48 hours for the results. Please call after 1 week if you have not heard back. Referrals: [facility], [Non-Staff] - Follow up with primary Forms: [employer] (Welsh), WORK NOTE
[2019-03-02] MEDS ORDERED: Morphine 4 mg/ml ISec IVP STA (13:02)
[2019-03-02 13:29] LABS: ALB/GLOB RATIO 1.2 (1.1-1.8); ALBUMIN 3.7 g/dL (3.0-4.8); ALT/SGPT 17 U/L (7-56); AST/SGOT 18 U/L (17-59); BLOOD UREA NITROGEN 19 mg/dL (7-21); CALCIUM 9.1 mg/dL (8.4-10.5); GFR NON-AFRICAN AMERICAN 58
[2019-03-02] MEDS ORDERED: Potassium Chloride 20 mEq ER Tab PO STA (13:29)
[2019-03-02 13:34] LABS: BASO # 0.02 K/mm3 (0.0-2.0); BASO % 0.1 % (0.0-3.0); EOS % 0.1 % (1.5-5.0); HEMOGLOBIN 11.8 g/dL (14.0-18.0); LYMPH # 0.9 (1.2-3.4); LYMPH % 4.8 % (22.0-35.0); MEAN CELL VOLUME 80.4 fl (80.0-105.0); MEAN CORPUSCULAR HEMOGLOBIN 25.7 pg (25.0-35.0); MEAN CORPUSCULAR HGB CONC 31.9 g/dl (31.0-37.0); MEAN PLATELET VOLUME 9.8 fl (7.0-11.0); MONO # 1.7 (0.1-0.6); MONO % 8.7 % (1.0-6.0); PLATELET COUNT 211 10^3/uL (120.0-450.0); RED CELL DISTRIBUTION WIDTH 15.3 % (11.5-14.5); WHITE BLOOD COUNT 19.6 10^3/uL (4.5-11.0)
[2019-03-02 13:41] LABS: B-TYPE NATRIURETIC PEPTIDE 410 pg/mL (0-450); TROPONIN I < 0.01 ng/mL
[2019-03-02 14:03] LABS: INR 1.62; PARTIAL THROMBOPLASTIN TIME 34.3 Seconds (26.9-38.3)
--- NOTE | 2019-03-02 14:26 | RAD ---
Date of service: 03/02/2019 HISTORY: cough r/o pna COMPARISON: Chest radiograph dated 02/28/2019. TECHNIQUE: 1 view obtained. FINDINGS: LUNGS: No active pulmonary disease. PLEURA: No significant pleural effusion identified, no pneumothorax apparent. CARDIOVASCULAR: Right subclavian access AICD/pacemaker redemonstrated. Aortic atherosclerotic calcifications. Cardiomediastinal silhouette stably enlarged. OSSEOUS STRUCTURES: Unchanged. VISUALIZED UPPER ABDOMEN: Normal. OTHER FINDINGS: None. IMPRESSION: No active disease.
[2019-03-02 14:27] VITALS: O2SAT 98
[2019-03-02 14:31] VITALS: BP 125/89; PULSE 89; RESP 17; TEMP 98.9
[2019-03-02 16:08] LABS: LYMPHOCYTE 7 % (22.0-35.0); MONOCYTE 5 % (1.0-6.0); NEUTROPHIL 88 % (50.0-70.0)
--- NOTE | 2019-03-02 20:45 | CARD ---
APPROVED REPORT Date of service: 03/02/2019 EKG Measurement Heart [id number] <Conclusion> Electronic ventricular pacemaker Atrial sensed , V paced
== END 2019-03-02 14:29 | disposition left against medical advice (07) ==
LOC: ED 12:22
DX: D86.9 Sarcoidosis, unspecified (principal); E87.6 Hypokalemia; J40 Bronchitis, not specified as acute or chronic; R07.9 Chest pain, unspecified; I48.91 Unspecified atrial fibrillation; Z79.01 Long term (current) use of anticoagulants; I50.9 Heart failure, unspecified; E03.9 Hypothyroidism, unspecified; I25.2 Old myocardial infarction; Z86.73 Personal history of transient ischemic attack (TIA), and cerebral infarction without residual deficits
CPT/HCPCS: 71045; 80053; 82550; 83615; 83735; 83880; 84484; 85025; 85610; 85730; 87040; 93005; 94640; 96374; 96375; 99284; J2270; J2930